=== PATIENT | female | born 1945 | race Caucasian/White ===

== ENCOUNTER 2017-09-10 07:53 | Day surgery (SDC) | payer MEDICARE ==
[2017-09-05 15:16] VITALS: BMI 28.1
--- NOTE | 2017-09-10 07:40 | P.GSHP ---
History of Present Illness H&P Date: 09/10/17 CHIEF COMPLAINT: Colon screen HISTORY OF PRESENT ILLNESS: The patient is a 72-year-old female who presents for colon screen. Lower endoscopy was offered for further evaluation and management. PAST MEDICAL HISTORY: Please see list. PAST SURGICAL HISTORY: Please see list. MEDICATIONS: Please see list. ALLERGIES: Please see list. SOCIAL HISTORY: No illicit drug use FAMILY HISTORY: No reports of Crohn disease or ulcerative colitis. REVIEW OF ORGAN SYSTEMS: CONSTITUTIONAL: No reports of fevers or chills. PHYSICAL EXAM: VITAL SIGNS: Stable GENERAL: Well-developed pleasant in no acute distress. HEENT: No scleral icterus. Extraocular movements grossly intact. Moist buccal mucosa. NECK: Supple without lymphadenopathy. CHEST: Unlabored respirations. Equal bilateral excursions. CARDIOVASCULAR: Regular rate and rhythm. Distal 2+ pulses. ABDOMEN: Soft, nontender, nondistended. MUSCULOSKELETAL: No clubbing, cyanosis, or edema. ASSESSMENT: 1. Colon screen. PLAN: 1. Recommend proceeding with a lower endoscopy Past Medical History Past Medical History: Hyperlipidemia, Hypertension, Osteoarthritis (OA) Additional Past Medical History / Comment(s): TMJ History of Any Multi-Drug Resistant Organisms: None Reported Past Surgical History: Section, Heart Catheterization Additional Past Surgical History / Comment(s): COLONOSCOPY. BILAT CATARACTS REMOVED. CYST REMOVED FROM RT BREAST-BENIGN. MASS REMOVED FROM RECTUM-BENIGN. EGD Past Anesthesia/Blood Transfusion Reactions: No Reported Reaction Smoking Status: Never smoker - Past Family History Father Family Medical History: Cancer Medications and Allergies Home Medications Medication Instructions Recorded Confirmed Type Acetaminophen [Tylenol Arthritis] 1,300 mg PO BID 09/05/17 09/05/17 History Ascorbic Acid [Vitamin C] 500 mg PO DAILY 09/05/17 09/05/17 History Calcium Carb-Vit D 500Mg-200Un 1 each PO DAILY 09/05/17 09/05/17 History [Oscal 500+D] Cholecalciferol (Vitamin D3) 2,000 unit PO DAILY 09/05/17 09/05/17 History [Vitamin D3] Docusate [Colace] 100 mg PO BID 09/05/17 09/05/17 History Metoprolol Tartrate [Lopressor] 50 mg PO BID 09/05/17 09/05/17 History Multivit-Min/Iron/Folic/Lutein 1 each PO HS 09/05/17 09/05/17 History [Centrum Silver Women Tablet] OXcarbazepine [Trileptal] 300 mg PO BID 09/05/17 09/05/17 History Simvastatin [Zocor] 40 mg PO HS 09/05/17 09/05/17 History levETIRAcetam 250 mg PO TID 09/05/17 09/05/17 History Allergies Allergy/AdvReac Type Severity Reaction Status Date / Time levofloxacin [From Levaquin] Allergy Rash/Hives Verified 09/05/17 15:34 metronidazole [From Flagyl] Allergy Rash/Hives Verified 09/05/17 15:34 acetaminophen AdvReac Nausea & Verified 09/05/17 15:34 [From Darvocet-N] Vomiting aspirin AdvReac Abdominal Verified 09/05/17 15:34 Pain propoxyphene AdvReac Nausea & Verified 09/05/17 15:34 [From Darvocet-N] Vomiting sulfamethoxazole AdvReac DIZZY Verified 09/05/17 15:34 [From Bactrim] tramadol AdvReac DIZZY Verified 09/05/17 15:34 trimethoprim [From Bactrim] AdvReac DIZZY Verified 09/05/17 15:34
[~2017-09-10 07:53] MED LIST: LACTATED RINGERS 1,000 ML IV SCH
[2017-09-10] MEDS ORDERED: LIDOCAINE 1% 20 ML VIAL (10MG/ML) FOR IV START INTRADERMA ONE (08:15)
[2017-09-10] MEDS ORDERED: LIDOCAINE 1% INJ 10MG/ML (20 ML MDV) ONE (08:19)
[2017-09-10] MEDS ORDERED: PROPOFOL 10 MG/ML 20 ML VIAL IV ONE (08:19)
[2017-09-10 08:20] VITALS: RESP 18; TEMP 98.4
--- NOTE | 2017-09-10 08:35 | P.PCN ---
Date of Procedure: 09/10/17 Description of Procedure: PREOPERATIVE DIAGNOSIS: Gastroesophageal reflux disease. History of fundoplasty. POSTOPERATIVE DIAGNOSIS: Gastroesophageal reflux disease. History of fundoplasty. Gastric polyps. OPERATION: Esophagogastroduodenoscopy with biopsies along antrum. SURGEON: Sophie Aguilar MD ANESTHESIA: MAC. INDICATIONS: The patient is a 72-year-old female who presents with a history of reflux disease. Benefits and risks of the procedure were described. Informed consent was obtained. DESCRIPTION: The patient was brought into the endoscopy suite and laid in the left lateral decubitus position. An Olympus gastroscope was passed along the posterior oropharynx down to the distal esophagus where the squamocolumnar junction was encountered at 36 cm from the incisors. The stomach was entered and no bile reflux was found. Additional findings are listed below. Biopsies with cold forceps were obtained of the antrum. The first through third portion of the duodenum was examined and unremarkable. Retroflexion of the scope confirmed Hill grade 2 lower esophageal valve. The squamocolumnar junction demostrated early and acute LA grade A erosive esophagitis. The stomach was desufflated. The patient tolerated the procedure well. FINDINGS: Squamocolumnar junction 36 cm from the incisors. Diaphragmatic hiatus at 36 cm. Hill grade 2 lower esophageal valve. LA grade A erosive esophagitis. No active duodenitis. Mild chronic gastritis. RECOMMENDATIONS: Continue medical therapy. Further recommendations pending results of pathology report. Upper endoscopy as needed.
--- NOTE | 2017-09-10 08:47 | P.PCN ---
Date of Procedure: 09/10/17 Description of Procedure: PREOPERATIVE DIAGNOSIS: Colonoscopy screening. Personal history of colon polyps. POSTOPERATIVE DIAGNOSIS: Colonoscopy screening. Personal history of colon polyps. Diverticulosis, scattered. Grade 4, external prolapsed hemorrhoids. OPERATION: Colonoscopy to the ileocecal valve and appendiceal orifice. SURGEON: Sophie Aguilar MD. ANESTHESIA: MAC. INDICATIONS: The patient is a 72-year-old female who presents for colonoscopy screening. Her last colonoscopy was over 5 years ago. Benefits and risks were described and informed consent was obtained. DESCRIPTION OF PROCEDURE: The patient had undergone Gatorade, MiraLAX and Dulcolax prep. She had been brought into the operating room and laid in the left lateral decubitus position. After adequate intravenous sedation, the rectum was examined with 2% lidocaine jelly. External hemorrhoids were encountered. The rectal tone was within normal limits. No lesions were palpated in the rectal vault. An Olympus colonoscope was advanced until the ileocecal valve and appendiceal orifice were clearly viewed. She had redundant sigmoid including multiple stricture points of the sigmoid colon from previous diverticulosis. The prep was excellent with clear visualization of the mucosal folds. The scope was removed with visualization of each mucosal fold. Scattered diverticulosis was encountered of the sigmoid colon. No colonic polyps were found. No evidence of focal colitis was found. Retroflexion of the scope demonstrated grade 2 internal hemorrhoids without active bleeding or inflammation. The colon was desufflated. The patient had tolerated the procedure well. Withdrawal time was over 6 minutes. FINDINGS: Internal hemorrhoids, grade 2 External prolapsed hemorrhoidsm, grade 4. No arteriovenous malformations. Sigmoid stricture from previous diverticulosis. Sigmoid diverticulosis. No adenomatous polyps. No focal colitis. RECOMMENDATIONS: Repeat lower endoscopy in 5 years, 2022. Plan - Discharge Summary Discharge Rx Participant: No New Discharge Prescriptions: No Action Docusate [Colace] 100 mg PO BID Ascorbic Acid [Vitamin C] 500 mg PO DAILY Simvastatin [Zocor] 40 mg PO HS Metoprolol Tartrate [Lopressor] 50 mg PO BID OXcarbazepine [Trileptal] 300 mg PO BID levETIRAcetam 250 mg PO TID Multivit-Min/Iron/Folic/Lutein [Centrum Silver Women Tablet] 1 each PO HS Cholecalciferol (Vitamin D3) [Vitamin D3] 2,000 unit PO DAILY Calcium Carb-Vit D 500Mg-200Un [Oscal 500+D] 1 each PO DAILY Acetaminophen [Tylenol Arthritis] 1,300 mg PO BID Discharge Medication List Acetaminophen [Tylenol Arthritis] 1,300 mg PO BID 09/05/17 [History] Ascorbic Acid [Vitamin C] 500 mg PO DAILY 09/05/17 [History] Calcium Carb-Vit D 500Mg-200Un [Oscal 500+D] 1 each PO DAILY 09/05/17 [History] Cholecalciferol (Vitamin D3) [Vitamin D3] 2,000 unit PO DAILY 09/05/17 [History] Docusate [Colace] 100 mg PO BID 09/05/17 [History] Metoprolol Tartrate [Lopressor] 50 mg PO BID 09/05/17 [History] Multivit-Min/Iron/Folic/Lutein [Centrum Silver Women Tablet] 1 each PO HS [History] OXcarbazepine [Trileptal] 300 mg PO BID 09/05/17 [History] Simvastatin [Zocor] 40 mg PO HS 09/05/17 [History] levETIRAcetam 250 mg PO TID 09/05/17 [History] Follow up Appointment(s)/Referral(s): Sophie Aguilar MD [STAFF PHYSICIAN] - 09/23/17 Patient Instructions/Handouts: *[facility] - (Anesthesia) Endoscopy Discharge Instructions Discharge Disposition: HOME SELF-CARE
[2017-09-10 08:53] VITALS: BP 132/64; PULSE 56
== END 2017-09-10 09:47 | disposition home or self-care (01) ==
LOC: ORWHC2ENDO 07:53
PROVIDERS: ATTEND Surgery Plastic and Reconstructive Surgery
DX: Z12.11 Encounter for screening for malignant neoplasm of colon (principal); K64.1 Second degree hemorrhoids; K64.8 Other hemorrhoids; K57.30 Diverticulosis of large intestine without perforation or abscess without bleeding; Q43.8 Other specified congenital malformations of intestine; K29.50 Unspecified chronic gastritis without bleeding; K31.7 Polyp of stomach and duodenum; K21.0 Gastro-esophageal reflux disease with esophagitis; Z86.010 Personal history of colon polyps; E78.5 Hyperlipidemia, unspecified; I10 Essential (primary) hypertension; G50.0 Trigeminal neuralgia; M19.90 Unspecified osteoarthritis, unspecified site; Z79.899 Other long term (current) drug therapy; Z88.1 Allergy status to other antibiotic agents; Z88.6 Allergy status to analgesic agent; Z88.5 Allergy status to narcotic agent; Z88.2 Allergy status to sulfonamides
CPT/HCPCS: 88305; 43239; J2001; J2704; G0105

== ENCOUNTER → 2018-02-14 | Outpatient (CLI) | payer MEDICARE ==
[2018-02-14 11:39] LABS: HCT 41.9 % (34.0-46.0); HGB 13.7 gm/dL (11.4-16.0); MCH 32.1 pg (25.0-35.0); MCHC 32.7 g/dL (31.0-37.0); MCV 98.2 fL (80.0-100.0); Mean Platelet Volume 6.3; Platelet Count 276 k/uL (150-450); RBC 4.26 m/uL (3.80-5.40); RDW 12.8 % (11.5-15.5); WBC 6.9 k/uL (3.8-10.6)
[2018-02-14 11:50] LABS: Potassium 4.4 mmol/L (3.5-5.1)
== END | disposition home or self-care (01) ==
LOC: LABPAT 10:53
PROVIDERS: ATTEND Surgery Plastic and Reconstructive Surgery
DX: K57.92 Diverticulitis of intestine, part unspecified, without perforation or abscess without bleeding (principal)
CPT/HCPCS: 36415; 80051; 85027; 93005

== ENCOUNTER 2018-04-02 10:12 | Inpatient (IN) | payer MEDICARE ==
[2018-03-30 11:01] VITALS: BMI 27.3
--- NOTE | 2018-04-01 21:43 | P.GSHP ---
History of Present Illness H&P Date: 04/02/18 CHIEF COMPLAINT: History of sigmoid diverticulitis HISTORY OF PRESENT ILLNESS: The patient is a 72-year-old female with long- standing history of chronic constipation including recurrent diverticulitis. She completed a colonoscopy which excluded underlying neoplasm. Now she presents for sigmoid colon resection. PAST MEDICAL HISTORY: Please see list. PAST SURGICAL HISTORY: Please see list. MEDICATIONS: Please see list. ALLERGIES: Please see list. SOCIAL HISTORY: No illicit drug use FAMILY HISTORY: No reports of Crohn disease or ulcerative colitis. REVIEW OF ORGAN SYSTEMS: CONSTITUTIONAL: Denies any fever or chills. HEENT: Denies any trouble with vision or nosebleeds. LYMPHATIC: The patient denies any lumps and bumps around the neck. RESPIRATORY: Denies pneumonia. Denies any troubles with breathing or dyspnea on exertion. CARDIOVASCULAR: Denies any chest pain, palpitations, or recent heart attacks. She completed cardiac risk assessment GASTROINTESTINAL: Has constipation and recent colonoscopy. GENITOURINARY: Has increased urinary frequency. MUSCULOSKELETAL: Has back pain, stiffness, joint arthritis. NEUROLOGIC: Denies any numbness or tingling along the distal extremities. No seizure disorders or headaches. PSYCHIATRIC: Denies depression or suidical ideation. HEMATOLOGIC: Denies any abnormal bleeding or bruising. PHYSICAL EXAM: VITAL SIGNS: Stable GENERAL: Well-developed pleasant in no acute distress. HEENT: No scleral icterus. Extraocular movements grossly intact. Moist buccal mucosa. He is hard of hearing. NECK: Supple without lymphadenopathy. CHEST: Unlabored respirations. Equal bilateral excursions. CARDIOVASCULAR: Regular rate and rhythm. Distal 2+ pulses. ABDOMEN: Soft, nontender, nondistended. MUSCULOSKELETAL: No clubbing, cyanosis, or edema. NERUO: Regular 2-12 grossly intact. PSYCH: Alert and oriented to person place and time. ASSESSMENT: 1. History of recurrent diverticulitis PLAN: 1. Benefits and risks of surgical intervention of sigmoid resection including robotic-assisted approach was also described. 2. She has completed an enhanced colon recovery program. 3. DVT prophylaxis. 4. Antibiotic prophylaxis. Past Medical History Past Medical History: GERD/Reflux, Hearing Disorder / Deafness, Hyperlipidemia, Hypertension, Osteoarthritis (OA) Additional Past Medical History / Comment(s): hx migraines, diveticulosis, trigeminal nerve pain, leakage of urine, [place] History of Any Multi-Drug Resistant Organisms: None Reported Past Surgical History: Breast Surgery, Section, Heart Catheterization Additional Past Surgical History / Comment(s): SILVIA CATARACTS REMOVED, CYST REMOVED FROM RT BREAST, FATTY MASS REMOVED FROM RECTUM, colonoscopy, EGD, Past Anesthesia/Blood Transfusion Reactions: No Reported Reaction Smoking Status: Never smoker - Past Family History Father Family Medical History: Cancer Additional Family Medical History / Comment(s): COLON CANCER, LEUKEMIA Medications and Allergies Home Medications Medication Instructions Recorded Confirmed Type Acetaminophen [Tylenol Arthritis] 1,300 mg PO BID PRN 09/05/17 03/30/18 History Ascorbic Acid [Vitamin C] 500 mg PO DAILY 09/05/17 03/30/18 History Calcium Carb-Vit D 500Mg-200Un 1 each PO DAILY 09/05/17 03/30/18 History [Oscal 500+D] Cholecalciferol (Vitamin D3) 2,000 unit PO DAILY 09/05/17 03/30/18 History [Vitamin D3] Docusate [Colace] 100 mg PO BID 09/05/17 03/30/18 History Metoprolol Tartrate [Lopressor] 50 mg PO BID 09/05/17 03/30/18 History Multivit-Min/Iron/Folic/Lutein 1 each PO DAILY 09/05/17 03/30/18 History [Centrum Silver Women Tablet] Simvastatin [Zocor] 40 mg PO HS 09/05/17 03/30/18 History levETIRAcetam 500 mg PO TID 09/05/17 03/30/18 History amLODIPine [Norvasc] 5 mg PO 1630 02/13/18 03/30/18 History Systane Balance 1 drop BOTH EYES DAILY 03/30/18 03/30/18 History Allergies Allergy/AdvReac Type Severity Reaction Status Date / Time levofloxacin [From Levaquin] Allergy Rash/Hives Verified 03/30/18 10:45 metronidazole [From Flagyl] Allergy Rash/Hives Verified 03/30/18 10:45 neomycin Allergy Vomiting Verified 03/30/18 10:45 aspirin AdvReac Abdominal Verified 03/30/18 10:45 Pain propoxyphene AdvReac Nausea & Verified 03/30/18 10:45 [From Darvocet-N] Vomiting sulfamethoxazole AdvReac DIZZY Verified 03/30/18 10:45 [From Bactrim] tramadol AdvReac DIZZY Verified 03/30/18 10:45 trimethoprim [From Bactrim] AdvReac DIZZY Verified 03/30/18 10:45
[~2018-04-02 10:12] MED LIST changes: +ACETAMINOPHEN TAB 500 MG TAB PO ONE; +ALVIMOPAN 12 MG CAPSULE PO ONE; +Antibiotics per Pharmacy 1 EACH MISC MISCELLANE PRN; +CLINDAMYCIN 900 MG in DEXTROSE 5% IN WATER 50 ML IVPB ONE; +DEXAMETHASONE SOD PHOSPHATE 10 MG/ML 1 ML VIAL IV ONE; +HEPARIN SODIUM,PORCINE 5,000 UNIT/ML 1 ML VIAL SQ ONE; +HYDROmorphone 0.5 MG/0.5 ML SYRINGE IVP PRN; -LACTATED RINGERS 1,000 ML IV SCH; +ONDANSETRON 4 MG/2 ML VIAL IVP ONE; +ceFAZolin IN SWFI 2 GM/20 ML SYRINGE IVP ONE
[2018-04-02] MEDS ORDERED: LIDOCAINE 1% 20 ML VIAL (10MG/ML) FOR IV START INTRADERMA ONE (12:15)
[2018-04-02] MEDS: LACTATED RINGERS 1,000 ML IV SCH ×2 (12:15→12:16)
[2018-04-02] MEDS ORDERED: ACETAMINOPHEN IV (For NPO) 1,000 MG/100 ML VIAL IVPB ONE (12:29)
[2018-04-02] MEDS ORDERED: MIDAZOLAM 2 MG/2 ML VIAL IV ONE (12:43)
[2018-04-02] MEDS ORDERED: NALOXONE 0.4 MG/ML 1 ML VIAL IV PRN (13:07)
[2018-04-02 13:22] LABS: Basophils % (A) 0 %; Eosinophils # (A) 0.1 k/uL (0-0.7); Eosinophils % (A) 1 %; HCT 41.5 % (34.0-46.0); HGB 13.4 gm/dL (11.4-16.0); Lymphocytes # (A) 1.8 k/uL (1.0-4.8); Lymphocytes % (A) 26 %; MCH 31.3 pg (25.0-35.0); MCHC 32.4 g/dL (31.0-37.0); MCV 96.5 fL (80.0-100.0); Mean Platelet Volume 7.2; Monocytes # (A) 0.4 k/uL (0-1.0); Monocytes % (A) 6 %; Neutrophils # (A) 4.5 k/uL (1.3-7.7); Neutrophils % (A) 66 %; Platelet Count 292 k/uL (150-450); RDW 12.4 % (11.5-15.5); WBC 6.8 k/uL (3.8-10.6)
[2018-04-02 13:24] LABS: ALT 28 U/L (9-52); AST 26 U/L (14-36); Albumin 4.6 g/dL (3.5-5.0); Alkaline Phosphatase 76 U/L (38-126); Anion Gap 9 mmol/L; Blood Urea Nitrogen 9 mg/dL (7-17); Calcium 10.4 mg/dL (8.4-10.2); Carbon Dioxide 30 mmol/L (22-30); Chloride 104 mmol/L (98-107); Glucose 96 mg/dL (74-99); Potassium 3.9 mmol/L (3.5-5.1); Sodium 143 mmol/L (137-145); Total Bilirubin 0.5 mg/dL (0.2-1.3); Total Protein 7.9 g/dL (6.3-8.2)
[2018-04-02] MEDS ORDERED: NEOSTIGMINE 1 MG/ML 10 ML VIAL ONE (13:26)
[2018-04-02] MEDS ORDERED: LIDOCAINE 1% INJ 10MG/ML (20 ML MDV) ONE (13:26)
[2018-04-02] MEDS ORDERED: fentaNYL (PF) 50 MCG/ML 2 ML AMP ONE (13:26)
[2018-04-02] MEDS ORDERED: PROPOFOL 10 MG/ML 20 ML VIAL IV ONE (13:26)
[2018-04-02] MEDS ORDERED: ROCURONIUM BROMIDE 10 MG/ML 10 ML VIAL IV ONE (13:26)
[2018-04-02] MEDS ORDERED: PHENYLEPHRINE-0.9% NACL SYG 1 MG/10 ML SYRINGE ONE (13:26)
[2018-04-02] MEDS ORDERED: GLYCOPYRROLATE 0.2 MG/ML 2 ML VIAL ONE (13:26)
[2018-04-02] MEDS ORDERED: MIDAZOLAM 2 MG/2 ML VIAL ONE (13:26)
[2018-04-02] MEDS ORDERED: SUCCINYLCHOLINE CHLORIDE 100 MG/5 ML SYR IV ONE (13:26)
[2018-04-02] MEDS ORDERED: LIDOCAINE 1%-EPI 1:100,000 30 ML VIAL SQ ONE (14:03)
[2018-04-02] MEDS ORDERED: LACTATED RINGERS 1,000 ML IV ONE (16:01)
[2018-04-02] MEDS ORDERED: BENZOCAINE/MENTHOL LOZENG 1 EACH LOZENGE MUCOUS MEM PRN (17:08)
[2018-04-02] MEDS ORDERED: HYDROmorphone 1 MG/ML 1 ML SYRINGE IVP PRN (17:08)
[2018-04-02] MEDS ORDERED: ONDANSETRON 4 MG/2 ML VIAL IVP PRN (17:08)
--- NOTE | 2018-04-02 17:08 | P.OP ---
Date of Procedure: 04/02/18 Description of Procedure: SURGEON: MESHA WELLINGTON MD PREOPERATIVE DIAGNOSES: 1. Sigmoid diverticulitis 2. Left lower quadrant abdominal pain 3. Gastroesophageal reflux disease 4. Hypertensive heart disease 5. Seizure disorder 6. Trigeminal neuralgia 6. History of multiple drug ALLERGIES 7. History of coronary artery disease POSTOPERATIVE DIAGNOSES: 1. Sigmoid diverticulitis 2. Left lower quadrant abdominal pain 3. Gastroesophageal reflux disease 4. Hypertensive heart disease 5. Seizure disorder 6. Trigeminal neuralgia 6. History of multiple drug ALLERGIES 7. History of coronary artery disease OPERATION: 1. Robotic-assisted daVinci Xi laparoscopic sigmoid colectomy, multi-port ANESTHESIA: General with local and epidural ESTIMATED BLOOD LOSS: 5 mL SPECIMENS REMOVED: sigmoid colon FINDINGS: 1. Localized diverticulitis of the left lower quadrant area resected. 2. Linear isoperistaltic colo-colo anastomosis performed using 45 green and blue loads INDICATIONS: The patient is a 72-year-old female who presents with history of sigmoid diverticulitis. She has chronic left lower quadrant abdominal pain as a result. She completed a colonoscopy. Surgical options were described including robotic assisted technique. Benefits and risks, including infection, possibility for additional surgery, including possible colostomy was discussed at length. Informed consent was obtained. DESCRIPTION: Earlier the patient had undergone a bowel prep using the enhanced colon recovery program and placement of epidural . The patient was transferred to the operating room and placed supine. The patient was then intubated. A Winters catheter placed. The abdomen was then prepped and draped in standard sterile fashion. After a timeout protocol was performed, attention was then brought to the left upper quadrant whereby a 0 degree 5 mm laparoscopic trocar entry was performed. The abdominal cavity was entered and insufflated to 15 mmHg pressure, which she tolerated well. Diagnostic laparoscopy demonstrated inflammatory reaction of the left lower quadrant after sigmoid colon with scarring. The sigmoid colon was moderately redundant. All 3 arms of the robot were used. Next a robotic 8-mm trocar was placed along the left lateral abdominal wall 15 cm proximal from the pelvis. A 12 mm port was placed along the right lateral abdominal wall followed by another robotic 8- mm port placed along the right upper quadrant. Ports were placed 8 cm apart from each other including 15cm away from the target anatomy of the left pelvis. The 5-mm port was exchanged for an 12 mm robotic port. The stapler 12-mm port was placed along the right lateral and left upper quadrant. The patient was then placed in Trendelenburg position, 15. The robotic da Joslyn Xi system was primed. The robot was docked along the left-side of the patient. Using a grasper for arm 1, a grasper for arm 3, including vessel sealer for arm 4, the robotic system was docked and primed as described. Instruments were interchanged by the assistant golf course superintendent including scissors the cartridge, needle pile driver operator, robotic stapler and vessel sealer. Next, attention was brought to identify the rectum. A stay suture using 0 silk was placed along the anterior serosa of the descending colon including along the rectum. The area of sigmoid diverticulitis was identified. The sigmoid mesentery was mobilized using a vessel sealer whereby the distal sigmoid colon was marked and tagged. Using robot stapler 45 mm blue load, the distal redundant sigmoid colon was divided. The mesentery of the sigmoid colon was mobilized towards the descending colon using a vessel sealer. Next, the proximal sigmoid colon was divided using robotic stapler 45 mm blue load. The descending colon was similarly marked using 3-0 silk. The rest of the sigmoid colon mesentery was mobilized using vessel sealer. The proximal and distal colon was brought in an isoperistaltic fashion after placing interrupted sutures along the proposed otto-lumen using 3-0 silk. Along the tinea coli of the proximal including distal limbs, a colotomy was prepared along both limbs. Next, a 45 mm blue stapler was fired to create the otto- lumen. The colotomy of the otto-lumen was closed using 3-0 Vicryl and 3-0 silk and 45 mm green loads. The robot was undocked. I re-scrubbed into the case. Via the 12 mm port of the left upper lateral trocar, the colon was removed after widening the incision. All sponges were removed from the abdominal cavity. Minimal contamination had occurred throughout the case. The 12-mm trocar site of left upper quadrant was less than 8 mm in size. Next all pneumoperitoneum was evacuated from the abdominal cavity. The 8-mm trocar sites were reapproximated using 4-0 Monocryl in an interrupted subcuticular fashion. The larger trocar sites were irrigated using warm normal saline and hydrogen peroxide solution of the colon extraction site. Local anesthetic was infiltrated to all wounds for postop analgesia. An OptiDearLocalam surgical dressing was placed over the colon extraction site. Liquid glue was applied to the rest of the skin incisions. The patient had tolerated the procedure well. Estimated blood loss was approximately 5 mL. The patient was extubated successfully. Intraoperative photos were reviewed with the patient's family who were overall pleased with the level of care. The patient was transferred to the postanesthesia care unit in stable condition. Console time 126 minutes
[2018-04-02] MEDS: ROPIVACAINE 250 MG, HYDROMORPHONE (PF) 5 MG in SODIUM CHLORIDE 0.9% 200 ML EPIDURAL PRN ×2 (17:12→17:54)
[2018-04-02] MEDS: D5-0.45% NACL WITH KCL 20MEQ/L 1,000 ML IV SCH (18:21)
[2018-04-02] MEDS: levETIRAcetam 500 MG TAB PO SCH (21:38)
[2018-04-02] MEDS: METOPROLOL TARTRATE 50 MG TAB PO SCH (21:38)
[2018-04-02] MEDS: HEPARIN SODIUM,PORCINE 5,000 UNIT/ML 1 ML VIAL SQ SCH (21:38)
[2018-04-02 22:48] LABS: Hemoglobin A1C 5.3 % (4.0-6.0)
[2018-04-02] MEDS: ceFAZolin IN SWFI 2 GM/20 ML SYRINGE IVP SCH (23:03)
[2018-04-02] MEDS: ACETAMINOPHEN TAB 500 MG TAB PO PRN (23:06)
[2018-04-03] MEDS: D5-0.45% NACL WITH KCL 20MEQ/L 1,000 ML IV SCH ×3 (01:48→19:01)
[2018-04-03] MEDS: ceFAZolin IN SWFI 2 GM/20 ML SYRINGE IVP SCH (07:33)
[2018-04-03 08:19] LABS: Basophils % (A) 0 %; Eosinophils % (A) 0 %; HCT 36.9 % (34.0-46.0); HGB 11.8 gm/dL (11.4-16.0); Lymphocytes # (A) 1.3 k/uL (1.0-4.8); Lymphocytes % (A) 14 %; MCH 31.3 pg (25.0-35.0); MCV 97.9 fL (80.0-100.0); Mean Platelet Volume 6.6; Monocytes # (A) 0.6 k/uL (0-1.0); Monocytes % (A) 7 %; Neutrophils # (A) 7.7 k/uL (1.3-7.7); Neutrophils % (A) 79 %; Platelet Count 271 k/uL (150-450); RBC 3.77 m/uL (3.80-5.40); RDW 12.5 % (11.5-15.5); WBC 9.8 k/uL (3.8-10.6)
[2018-04-03] MEDS: HEPARIN SODIUM,PORCINE 5,000 UNIT/ML 1 ML VIAL SQ SCH ×2 (08:23→20:38)
[2018-04-03] MEDS: levETIRAcetam 500 MG TAB PO SCH ×3 (08:24→20:39)
[2018-04-03] MEDS: METOPROLOL TARTRATE 50 MG TAB PO SCH ×2 (08:24→20:39)
[2018-04-03 08:27] LABS: Anion Gap 2 mmol/L; Blood Urea Nitrogen 8 mg/dL (7-17); Calcium 8.9 mg/dL (8.4-10.2); Carbon Dioxide 30 mmol/L (22-30); Chloride 106 mmol/L (98-107); Glucose 124 mg/dL (74-99); Potassium 4.3 mmol/L (3.5-5.1); Sodium 138 mmol/L (137-145)
[2018-04-03] MEDS: ACETAMINOPHEN TAB 500 MG TAB PO PRN (11:16)
[2018-04-03] MEDS ORDERED: SODIUM CHLORIDE 0.9% 1,000 ML IV ONE (13:32)
--- NOTE | 2018-04-03 13:33 | P.PN ---
Subjective Progress Note Date: 04/03/18 72-year-old female resting in bed. Epidural has been DC'd per anesthesia. Tolerating a clear liquid diet. Surgical dressings site dry. A few hypoactive bowel tones. States has not voided since the Winters came out. Is not passing gas has been up to bathroom and back .Robotic-assisted daVinci Xi laparoscopic sigmoid colectomy, multi-port done on April 02 Objective - Vital Signs Vital signs: Vital Signs Temp 98.2 F 04/03/18 07:30 Pulse 62 04/03/18 07:30 Resp 14 04/03/18 07:30 BP 91/59 04/03/18 07:30 Pulse Ox 97 04/03/18 07:30 Intake & Output 04/02/18 04/03/18 04/03/18 18:59 06:59 18:59 Intake Total 2185 1250 Output Total 205 450 750 Balance 1980 800 -750 Weight 69.853 kg Intake: IV 2185 Intake, IV Titration 1250 Amount D5-0.45% NaCl with KCl 1250 20Meq/l 1,000 ml @ 125 mls/hr IV .Q8H [facility] Rx#: [id number] Output: Urine 200 450 750 Uretheral (Winters) 450 750 Estimated Blood Loss 5 Other: Voiding Method Indwelling Catheter Indwelling Catheter Indwelling Catheter - Exam GENERAL APPEARANCE: 72-year-old female patient is alert, resting in bed in no acute distress. Did note systolic blood pressure 91/59 VITAL SIGNS: Reviewed HEENT: Head is normocephalic and atraumatic. Pupils are equal and reactive. The nares are patent. Oropharynx is clear without lesions. NECK: Supple without lymphadenopathy. Traches midline. HEART: S1, S2. Regular rate and rhythm. No murmur noted LUNGS: No crackles or wheezes are heard. On room air sats are 97% ABDOMEN: Soft, surgical dressing dry surgical tenderness appropriate not distended a few hypoactive bowel tones. No peritoneal signs. No palpable organomegaly or masses. EXTREMITIES: Normal skin color and turgor. No cyanosis, rash, ulceration, clubbing or edema. Radial pedal pulses are 2/4 bilaterally. NEUROLOGICAL: No focal deficits. Strength and sensation are grossly intact. - Labs CBC & Chem 7: 04/03/18 07:15 04/03/18 07:15 Labs: Abnormal Lab Results - Last 24 Hours (Table) 04/02/18 04/03/18 04/03/18 Range/Units 12:16 07:15 07:15 RBC 3.77 L (3.80-5.40) m/uL Glucose 124 H (74-99) mg/dL Calcium 10.4 H (8.4-10.2) mg/dL Assessment and Plan Assessment: Impression Left lower quadrant abdominal pain present on admission suspect due to sigmoid diverticulitis Gastroesophageal reflux disease Multiple drug ALLERGIES Robotic-assisted daVinci Xi laparoscopic sigmoid colectomy, multi-port agust 24 plan continue surgical care pain control clear liquid diet Monitor blood pressure address as indicated DVT and GI prophylaxis Increase activity as tolerated The above impression and plan of care have been discussed and directed by signing physician. Jamilah Schaffer nurse practitioner acting as scribe for signing physician.
[2018-04-03] MEDS: PANTOPRAZOLE 40 MG/10 ML VIAL IVP SCH (15:25)
[2018-04-03] MEDS ORDERED: amLODIPine 5 MG TAB PO SCH (16:30)
[2018-04-03] MEDS: HYDROcodone/APAP 5-325MG 1 EACH TAB PO PRN ×2 (19:00→23:04)
--- NOTE | 2018-04-03 19:40 | P.PN ---
Progress Note - Text Progress Note Date: 04/03/18 Patient has voided this evening. She is quite comfortable. She reports increased pain now that epidural is removed. PLAN: 1. Pain management with discharge home tomorrow.
[2018-04-03] MEDS ORDERED: diphenhydrAMINE 25 MG CAP PO PRN ×2 (20:17→20:18)
--- NOTE | 2018-04-03 22:38 | CONS ---
CONSULTATION REASON FOR CONSULTATION: Advice regarding hypertension and other multiple medical issues requested by Dr. Aguilar. HISTORY OF PRESENT ILLNESS: This 72-year-old woman with a past medical history of hypertension, hyperlipidemia, history of DJD, history of migraine, underwent laparoscopic sigmoid colectomy for sigmoid diverticulitis. The patient had hypotension, possibly secondary to epidural anesthesia. The blood pressure was 89/56, responded to IV boluses. There is no history of any chest pain, no history of palpitations, no history of headache, loss of consciousness, seizures. No history of nausea, vomiting, diarrhea, fever, rigor or chills at this time. PAST MEDICAL HISTORY: 1. History of hearing defect. 2. Hypertension. 3. Hyperlipidemia. 4. History of DJD. 5. History of breast surgery. HOME MEDICATIONS: 1. Keppra 500 mg p.o. t.i.d. 2. Norvasc 5 mg p.o. daily. 3. Zocor 40 mg at bedtime. 4. Systane 1 drop both eyes b.i.d. 5. Centrum multivitamins 1 p.o. daily. 6. Lopressor 50 mg p.o. b.i.d. 7. Colace 100 mg p.o. b.i.d. 8. Vitamin D3 2000 daily. 9. Os-Twin with vitamin D p.o. daily. 10.Vitamin C 500 mg p.o. daily. 11.Tylenol Arthritis b.i.d. p.r.n. ALLERGIES: 1. LEVAQUIN. 2. FLAGYL. 3. ASPIRIN. 4. NEOMYCIN. 5. DARVOCET. 6. BACTRIM. 7. ULTRAM. FAMILY HISTORY: History of colon cancer, leukemia in the family. SOCIAL HISTORY: No history of smoking. No history of alcohol intake. REVIEW OF SYSTEMS: ENT: No diminished hearing. No diminished vision. CARDIOVASCULAR SYSTEM: No angina, palpitations. RESPIRATORY SYSTEM: No cough, hemoptysis. GI: As mentioned earlier. : No dysuria or retention. NERVOUS SYSTEM: No numbness, weakness. ALLERGY/IMMUNOLOGY: No asthma, hayfever. MUSCULOSKELETAL: As mentioned earlier. HEMATOLOGY/ONCOLOGY: No history of anemia. ENDOCRINE: No history of diabetes, hypothyroidism. CONSTITUTIONAL: As mentioned earlier. DERMATOLOGY: Negative. RHEUMATOLOGY: Negative. PSYCHIATRY: As mentioned earlier. PHYSICAL EXAMINATION: Patient is alert and oriented x3. Pulse is 72, blood pressure 119/65, respiration 18, temperature 98.4, pulse ox 96% on room air. HEENT: Conjunctivae normal. Oral mucosa moist. NECK: No jugular venous distention. No carotid bruit. No lymph node enlargement. CARDIOVASCULAR SYSTEM: S1, S2 muffled. RESPIRATORY SYSTEM: Breath sounds diminished at the bases. No rhonchi. No crackles. ABDOMEN: Soft. Status post surgery. LEGS: No edema. No swelling. NERVOUS SYSTEM: Higher functions as mentioned earlier. Moves all 4 limbs. No focal motor or sensory deficit. LYMPHATICS: No lymph node palpable in neck, axillae or groin. SKIN: No ulcer, rash, bleeding. LABS: CBC within normal limits. Sodium 130, potassium 4.3. Creatinine is normal. ASSESSMENT: 1. Status post laparoscopic sigmoid colectomy for sigmoid diverticulitis. 2. Hypotension, possibly secondary to epidural. 3. History of hypertension. 4. Hyperlipidemia. 5. Degenerative joint disease. 6. History of migraines. 7. History of cataracts. RECOMMENDATIONS AND DISCUSSION: In this 72-year-old woman who presented with multiple medical issues, at this time I recommend to continue current medications, continue with symptomatic treatment. Otherwise at this time I would recommend to hold the blood pressure medications and to monitor blood pressure closely. Continue the IV fluids. The labs are within normal limits at this time. I would also recommend holding the metoprolol if the blood pressure is low. Otherwise, we will continue to monitor. Further recommendations to follow. MMODL / IJN: [id number] /
[2018-04-04] MEDS: D5-0.45% NACL WITH KCL 20MEQ/L 1,000 ML IV SCH ×2 (02:02→11:37)
[2018-04-04 02:49] VITALS: RESP 16
[2018-04-04] MEDS: HYDROcodone/APAP 5-325MG 1 EACH TAB PO PRN ×3 (04:23→12:25)
[2018-04-04 07:31] VITALS: BP 128/75; PULSE 73; TEMP 98.5
[2018-04-04] MEDS: PANTOPRAZOLE 40 MG/10 ML VIAL IVP SCH (08:24)
[2018-04-04] MEDS: HEPARIN SODIUM,PORCINE 5,000 UNIT/ML 1 ML VIAL SQ SCH (08:24)
[2018-04-04] MEDS: METOPROLOL TARTRATE 50 MG TAB PO SCH (08:24)
[2018-04-04 08:26] LABS: Basophils % (A) 0 %; Eosinophils # (A) 0.1 k/uL (0-0.7); Eosinophils % (A) 1 %; HCT 40.6 % (34.0-46.0); HGB 12.6 gm/dL (11.4-16.0); Lymphocytes # (A) 2.6 k/uL (1.0-4.8); Lymphocytes % (A) 26 %; MCH 30.6 pg (25.0-35.0); MCHC 31.2 g/dL (31.0-37.0); MCV 98.1 fL (80.0-100.0); Mean Platelet Volume 7.2; Monocytes # (A) 0.6 k/uL (0-1.0); Monocytes % (A) 6 %; Neutrophils # (A) 6.6 k/uL (1.3-7.7); Neutrophils % (A) 65 %; Platelet Count 242 k/uL (150-450); RBC 4.14 m/uL (3.80-5.40); RDW 12.6 % (11.5-15.5); WBC 10.1 k/uL (3.8-10.6)
[2018-04-04] MEDS: levETIRAcetam 500 MG TAB PO SCH (09:34)
[2018-04-04 09:41] LABS: Anion Gap 5 mmol/L; Calcium 9.4 mg/dL (8.4-10.2); Carbon Dioxide 25 mmol/L (22-30); Chloride 112 mmol/L (98-107); Glucose 97 mg/dL (74-99); Sodium 142 mmol/L (137-145)
[2018-04-04 09:45] LABS: Blood Urea Nitrogen 5 mg/dL (7-17); Potassium 4.9 mmol/L (3.5-5.1)
--- NOTE | 2018-04-04 12:47 | P.DS ---
Providers Date of admission: 04/02/18 10:12 Expected date of discharge: 04/04/18 Attending physician: Sophie Aguilar Consults: 04/03/18 15:23 Consult Physician Routine Consulting Provider: Elliott Vance Consult Reason/Comments: medical management Do you want consulting provider notified?: Yes Primary care physician: Catracho Robertson Holley - Discharge Diagnosis(es) (1) Trigeminal neuralgia Current Visit: Yes Status: Acute (2) Gastroesophageal reflux Current Visit: Yes Status: Acute (3) Hypertensive heart disease Current Visit: Yes Status: Acute (4) Hard of hearing Current Visit: Yes Status: Acute (5) Diverticulitis Current Visit: Yes Status: Acute (6) S/P colectomy Current Visit: Yes Status: Acute Hospital Course: POSTOPERATIVE DIAGNOSES: 1. Sigmoid diverticulitis 2. Left lower quadrant abdominal pain 3. Gastroesophageal reflux disease 4. Hypertensive heart disease 5. Seizure disorder 6. Trigeminal neuralgia 6. History of multiple drug ALLERGIES 7. History of coronary artery disease The patient is a 72-year-old female who presents with history of sigmoid diverticulitis. She has chronic left lower quadrant abdominal pain as a result. She completed a colonoscopy. Surgical options were described including robotic assisted technique. Benefits and risks, including infection, possibility for additional surgery, including possible colostomy was discussed at length. Informed consent was obtained. Postprocedure she had done well. She was able tolerate diet. Her pain was well -controlled. She was urinating spontaneously. Her left lower quadrant abdominal pain had resolved. Vital Signs Temp 98.5 F 04/04/18 07:00 Pulse 73 04/04/18 07:00 Resp 16 04/04/18 07:00 BP 128/75 04/04/18 07:00 Pulse Ox 96 04/04/18 07:00 Intake & Output 04/03/18 04/04/18 04/04/18 18:59 06:59 18:59 Intake Total 875 2300 Output Total 1100 Balance -225 2300 Intake: Intake, IV Titration 875 2000 Amount D5-0.45% NaCl with KCl 875 2000 20Meq/l 1,000 ml @ 125 mls/hr IV .Q8H PETRONA Rx#: [id number] Other 300 Output: Urine 1100 Uretheral ([place]inters) 750 Other: Voiding Method Toilet # Voids 6 1 GENERAL: Well developed and in no acute distress. Pleasant. HEENT: No sclera icterus. Extraocular movements grossly intact. Moist buccal mucosa. Head is atraumatic, normocephalic. Hears conversational speech. No nasal drainage. NECK: Supple without lymphadenopathy. No JV distention. CHEST: Non-labored respirations and equal bilateral excursions. CARDIOVASCULAR: Regular rate and rhythm. Palpable 2+ radial pulses. ABDOMEN: Soft, nontender. Nondistended. Incisions clean dry and intact. MUSCULOSKELETAL: No clubbing, cyanosis or edema. NEUROLOGIC: No focal or lateralizing signs. PSYCH: Appropriate affect. Alert and oriented to person, place and time. SKIN: Good skin turgor. Well perfused. PLAN: 1. Colectomy reviewed including a full liquid diet and protein shakes advised. 2. She had tolerated for pain control. 3. Follow-up in the office at [facility] in 5 days Procedures: OPERATION: 1. Robotic-assisted daVinci Xi laparoscopic sigmoid colectomy, multi-port ANESTHESIA: General with local and epidural ESTIMATED BLOOD LOSS: 5 mL SPECIMENS REMOVED: sigmoid colon FINDINGS: 1. Localized diverticulitis of the left lower quadrant area resected. 2. Linear isoperistaltic colo-colo anastomosis performed using 45 green and blue loads Patient Condition at Discharge: Stable Plan - Discharge Summary Discharge Rx Participant: Yes New Discharge Prescriptions: New HYDROcodone/APAP 5-325MG [[place] 5-325] 1 tab PO Q4HR PRN 3 Days #18 tab PRN Reason: Pain Continue Ascorbic Acid [Vitamin C] 500 mg PO DAILY Simvastatin [Zocor] 40 mg PO HS Metoprolol Tartrate [Lopressor] 50 mg PO BID levETIRAcetam 500 mg PO TID Multivit-Min/Iron/Folic/Lutein [Centrum Silver Women Tablet] 1 tab PO DAILY Cholecalciferol (Vitamin D3) [Vitamin D3] 2,000 unit PO DAILY Calcium Carb-Vit D 500Mg-200Un [Oscal 500+D] 1 tab PO DAILY Acetaminophen [Tylenol Arthritis] 1,300 mg PO BID PRN PRN Reason: Pain amLODIPine [Norvasc] 5 mg PO DAILY@1630 Propylene Glycol/Peg 400/Pf [Systane 0.3-0.4% Eye Drops] 1 drop BOTH EYES DAILY Discontinued Docusate [Colace] 100 mg PO BID Discharge Medication List Acetaminophen [Tylenol Arthritis] 1,300 mg PO BID PRN 09/05/17 [History] Ascorbic Acid [Vitamin C] 500 mg PO DAILY 09/05/17 [History] Calcium Carb-Vit D 500Mg-200Un [Oscal 500+D] 1 tab PO DAILY 09/05/17 [History] Cholecalciferol (Vitamin D3) [Vitamin D3] 2,000 unit PO DAILY 09/05/17 [History] Metoprolol Tartrate [Lopressor] 50 mg PO BID 09/05/17 [History] Multivit-Min/Iron/Folic/Lutein [Centrum Silver Women Tablet] 1 tab PO DAILY [History] Simvastatin [Zocor] 40 mg PO HS 09/05/17 [History] levETIRAcetam 500 mg PO TID 09/05/17 [History] amLODIPine [Norvasc] 5 mg PO DAILY@1630 02/13/18 [History] Propylene Glycol/Peg 400/Pf [Systane 0.3-0.4% Eye Drops] 1 drop BOTH EYES DAILY 04/02/18 [History] HYDROcodone/APAP 5-325MG [[place] 5-325] 1 tab PO Q4HR PRN 3 Days #18 tab [Rx] Follow up Appointment(s)/Referral(s): Sophie Aguilar MD [STAFF PHYSICIAN] - 04/08/18 ([place]) Patient Instructions/Handouts: Colectomy (GEN), Colectomy Diet (GEN) Activity/Diet/Wound Care/Special Instructions: No lifting over 4 pounds in 4 weeks. May shower. No bath tub soaks. Dressing to be removed by surgeon in the office. Liquid diet including protein shakes. Discharge Disposition: HOME SELF-CARE
== END 2018-04-04 15:30 | disposition home or self-care (01) | DRG 331 ==
LOC: 2ORMAIN 10:12 → 3SUR 16:50
PROVIDERS: ADMIT Surgery Plastic and Reconstructive Surgery; ATTEND Surgery Plastic and Reconstructive Surgery
PROC: 8E0W4CZ Robotic Assisted Procedure of Trunk Region, Percutaneous Endoscopic Approach (ICD-10-PCS; 2018-04-02)
PROC: 0DBN4ZZ Excision of Sigmoid Colon, Percutaneous Endoscopic Approach (ICD-10-PCS; principal; 2018-04-02 12:05)
DX: K57.32 Diverticulitis of large intestine without perforation or abscess without bleeding (principal); E78.5 Hyperlipidemia, unspecified; G40.909 Epilepsy, unspecified, not intractable, without status epilepticus; G50.0 Trigeminal neuralgia; H91.90 Unspecified hearing loss, unspecified ear; I11.9 Hypertensive heart disease without heart failure; I25.10 Atherosclerotic heart disease of native coronary artery without angina pectoris; K21.9 Gastro-esophageal reflux disease without esophagitis; M19.90 Unspecified osteoarthritis, unspecified site; Z79.899 Other long term (current) drug therapy; Z80.0 Family history of malignant neoplasm of digestive organs; Z80.6 Family history of leukemia; Z88.6 Allergy status to analgesic agent; Z88.1 Allergy status to other antibiotic agents; Z88.5 Allergy status to narcotic agent; Z88.2 Allergy status to sulfonamides; G43.909 Migraine, unspecified, not intractable, without status migrainosus; Z98.42 Cataract extraction status, left eye; Z98.41 Cataract extraction status, right eye; I95.2 Hypotension due to drugs; T41.3X5A Adverse effect of local anesthetics, initial encounter
CPT/HCPCS: 80048; 80053; 83036; 85025; 86850; 86900; 86901; 88307

== ENCOUNTER 2018-04-06 11:25 | Inpatient (IN) | payer MEDICARE ==
--- NOTE | 2018-04-06 11:32 | ED ---
General Adult HPI - General Stated complaint: bowel obstruction Time Seen by Provider: 04/06/18 11:26 Source: RN notes reviewed - History of Present Illness Initial comments: This is a 9-year-old female who is brought in to the hospital from [facility]. Patient was seen here today for abdominal pain. Patient had abdominal surgery by Dr. Bonilla on and was discharged home on Friday. Patient states last night in the middle the night she started having quite a bit of lower abdominal pain. Patient went [facility] was diagnosed with a small bowel obstruction. Patient also had a small hernia in the abdominal wall on the left side. Patient denies any recent fever chills or cough. Patient denies any leg pain or swelling. Patient denies any nausea or vomiting. - Related Data Home Medications Medication Instructions Recorded Confirmed Acetaminophen [Tylenol Arthritis] 1,300 mg PO BID PRN 09/05/17 04/02/18 Ascorbic Acid [Vitamin C] 500 mg PO DAILY 09/05/17 04/02/18 Calcium Carb-Vit D 500Mg-200Un 1 tab PO DAILY 09/05/17 04/02/18 [Oscal 500+D] Cholecalciferol (Vitamin D3) 2,000 unit PO DAILY 09/05/17 04/02/18 [Vitamin D3] Metoprolol Tartrate [Lopressor] 50 mg PO BID 09/05/17 04/02/18 Multivit-Min/Iron/Folic/Lutein 1 tab PO DAILY 09/05/17 04/02/18 [Centrum Silver Women Tablet] Simvastatin [Zocor] 40 mg PO HS 09/05/17 04/02/18 levETIRAcetam 500 mg PO TID 09/05/17 04/02/18 amLODIPine [Norvasc] 5 mg PO DAILY@1630 02/13/18 04/02/18 Propylene Glycol/Peg 400/Pf 1 drop BOTH EYES DAILY 04/02/18 04/02/18 [Systane 0.3-0.4% Eye Drops] Previous Rx's Medication Instructions Recorded HYDROcodone/APAP 5-325MG [[place] 1 tab PO Q4HR PRN 3 Days #18 tab 04/04/18 5-325] Allergies Allergy/AdvReac Type Severity Reaction Status Date / Time levofloxacin [From Levaquin] Allergy Rash/Hives Verified 04/02/18 17:32 metronidazole [From Flagyl] Allergy Rash/Hives Verified 04/02/18 17:32 aspirin AdvReac Abdominal Verified 04/02/18 17:32 Pain neomycin AdvReac Vomiting Verified 04/02/18 17:32 propoxyphene AdvReac Nausea & Verified 04/02/18 17:32 [From Darvocet-N] Vomiting sulfamethoxazole AdvReac DIZZY Verified 04/02/18 17:32 [From Bactrim] tramadol AdvReac DIZZY Verified 04/02/18 17:32 trimethoprim [From Bactrim] AdvReac DIZZY Verified 04/02/18 17:32 Review of Systems ROS Statement: Those systems with pertinent positive or pertinent negative responses have been documented in the HPI. ROS Other: All systems not noted in ROS Statement are negative. Past Medical History Past Medical History: GERD/Reflux, Hearing Disorder / Deafness, Hyperlipidemia, Hypertension, Osteoarthritis (OA) Additional Past Medical History / Comment(s): hx migraines, diveticulosis, trigeminal nerve pain, leakage of urine, ATKA History of Any Multi-Drug Resistant Organisms: None Reported Past Surgical History: Breast Surgery, Section, Heart Catheterization Additional Past Surgical History / Comment(s): SILVIA CATARACTS REMOVED, CYST REMOVED FROM RT BREAST, FATTY MASS REMOVED FROM RECTUM, colonoscopy, EGD, Past Anesthesia/Blood Transfusion Reactions: No Reported Reaction Past Psychological History: No Psychological Hx Reported Smoking Status: Never smoker Past Alcohol Use History: None Reported Past Drug Use History: None Reported - Past Family History Father Family Medical History: Cancer Additional Family Medical History / Comment(s): COLON CANCER, LEUKEMIA General Exam - General Exam Comments Initial Comments: GENERAL: Patient is well-developed and well-nourished. Patient is nontoxic and well- hydrated and is in mild distress. ENT: Neck is soft and supple. No significant lymphadenopathy is noted. Oropharynx is clear. Moist mucous membranes. Neck has full range of motion without eliciting any pain. EYES: The sclera were anicteric and conjunctiva were pink and moist. Extraocular movements were intact and pupils were equal round and reactive to light. Eyelids were unremarkable. PULMONARY: Unlabored respirations. Good breath sounds bilaterally. No audible rales rhonchi or wheezing was noted. CARDIOVASCULAR: There is a regular rate and rhythm without any murmurs gallops or rubs. ABDOMEN: Patient has lower abdominal pain slightly more on the left than the right. No rebound SKIN: Skin is clear with no lesions or rashes and otherwise unremarkable. NEUROLOGIC: Patient is alert and oriented x3. Cranial nerves II through XII are grossly intact. Motor and sensory are also intact. Normal speech, volume and content. Symmetrical smile. MUSCULOSKELETAL: Normal extremities with adequate strength and full range of motion. No lower extremity swelling or edema. No calf tenderness. LYMPHATICS: No significant lymphadenopathy is noted PSYCHIATRIC: Normal psychiatric evaluation. Course Vital Signs 04/06/18 11:34 Temperature 98.4 F Pulse Rate 83 Respiratory 17 Rate Blood Pressure 123/63 O2 Sat by Pulse 95 Oximetry Medical Decision Making - Medical Decision Making I reviewed the patient's paperwork from [facility]. I spoke with Dr. Bonilla she agreed to admit the patient admitted the patient I wrote admitting orders. Disposition Clinical Impression: Small bowel obstruction Disposition: ADMITTED IP TO THIS HOSP Referrals: Catracho Holley MD [Primary Care Provider] - 1-2 days Time of Disposition: 11:42
[2018-04-06] MEDS ORDERED: SODIUM CHLORIDE 0.9% 1,000 ML IV ONE (11:42)
[2018-04-06 12:29] VITALS: BMI 26.4
[2018-04-06] MEDS ORDERED: ceFAZolin IN SWFI 2 GM/20 ML SYRINGE IVP ONE (12:39)
[2018-04-06] MEDS: HYDROmorphone 1 MG/ML 1 ML SYRINGE IVP PRN (14:13)
[2018-04-06] MEDS ORDERED: SODIUM CHLORIDE 0.9% 2,000 ML IV ONE (14:53)
--- NOTE | 2018-04-06 14:53 | P.GSHP ---
History of Present Illness H&P Date: 04/06/18 CHIEF COMPLAINT: Abdominal pain HISTORY OF PRESENT ILLNESS: The patient is a 72 year old female who presents after recent discharge 3 days ago from a robotic colectomy. She was doing very well upon discharge including 24 hours following her hospitalization. She reports sitting down and then coughing last night. After that she felt pain along the left lower abdomen with new onset abdominal distention. She went to her local emergency room in [facility]. Additional CT studies showed an incarcerated incisional hernia since her transfer to [facility]. PAST MEDICAL HISTORY: See list. PAST SURGICAL HISTORY: See list. MEDICATIONS: See list. ALLERGIES: See list. SOCIAL HISTORY: No illicit drug use FAMILY HISTORY: No reports of Crohn's disease or inflammatory bowel disease REVIEW OF ORGAN SYSTEMS: CONSTITUTIONAL: No fevers or chills HEENT: Wears glasses. His heart of hearing. No reports of dysphagia. ENDOCRINE: No reports of thyroid disorders. No diabetes. CARDIOVASCULAR: No heart attack. No chest pain. RESPIRATORY: No shortness of breath or pneumonia. GASTROINTESTINAL: No reports of recent blood in stools. Has gastroesophageal reflux disease. Recent colon resection for diverticulosis NEURO: No reports of stroke or seizure disorders. Has trigeminal neuralgia PSYCH: No depression or suicidal ideation HEMATOLOGIC: No easy bruising or bleeding LYMPHATIC: The patient denies any lumps and bumps around the neck. GENITOURINARY: Denies any blood in urine or increased urinary frequency. MUSCULOSKELETAL: Has back pain, stiffness or joint arthritis. SKIN: No skin cancer or rash per PHYSICAL EXAM: VITAL SIGNS: Currently stable. GENERAL: Well-developed in no acute distress. HEENT: No sclera icterus. Extraocular movements grossly intact. Moist buccal mucosa. Head is atraumatic, normocephalic. Hears conversational speech. No nasal drainage. NECK: Supple without lymphadenopathy. CHEST: Non-labored respirations and equal bilateral excursions. CARDIOVASCULAR: Regular rate with regular rhythm. Palpable 2+ radial pulses. ABDOMEN: Soft. Mild distention. Localized tenderness left upper quadrant. No peritonitis. MUSCULOSKELETAL: No clubbing, cyanosis or edema. NEUROLOGIC: No focal or lateralizing signs. Cranial nerves II through XII grossly intact. PSYCH: Appropriate affect. Alert and oriented to person, place and time. SKIN: Well perfused. Good skin turgor. LABS: Reviewed STUDIES: CT of the abdomen and pelvis personally reviewed consistent with small bowel obstruction from incisional hernia ASSESSMENT: 1. Small bowel obstruction from incisional hernia PLAN: 1. Nothing by mouth 2. IV fluid hydration 3. Diagnostic laparoscopy with repair of incisional hernia 4. Hospitalization anticipated overnight Past Medical History Past Medical History: GERD/Reflux, Hearing Disorder / Deafness, Hyperlipidemia, Hypertension, Osteoarthritis (OA) Additional Past Medical History / Comment(s): hx migraines, diveticulosis, trigeminal nerve pain, leakage of urine, MAKAH History of Any Multi-Drug Resistant Organisms: None Reported Past Surgical History: Breast Surgery, Section, Heart Catheterization Additional Past Surgical History / Comment(s): SILVIA CATARACTS REMOVED, CYST REMOVED FROM RT BREAST, FATTY MASS REMOVED FROM RECTUM, colonoscopy, EGD, Past Anesthesia/Blood Transfusion Reactions: No Reported Reaction Past Psychological History: No Psychological Hx Reported Smoking Status: Never smoker Past Alcohol Use History: None Reported Past Drug Use History: None Reported - Past Family History Father Family Medical History: Cancer Additional Family Medical History / Comment(s): COLON CANCER, LEUKEMIA Medications and Allergies Home Medications Medication Instructions Recorded Confirmed Type Acetaminophen [Tylenol Arthritis] 1,300 mg PO BID PRN 09/05/17 04/06/18 History Ascorbic Acid [Vitamin C] 500 mg PO DAILY 09/05/17 04/06/18 History Calcium Carb-Vit D 500Mg-200Un 1 tab PO DAILY 09/05/17 04/06/18 History [Oscal 500+D] Cholecalciferol (Vitamin D3) 2,000 unit PO DAILY 09/05/17 04/06/18 History [Vitamin D3] Metoprolol Tartrate [Lopressor] 50 mg PO BID 09/05/17 04/06/18 History Multivit-Min/Iron/Folic/Lutein 1 tab PO DAILY 09/05/17 04/06/18 History [Centrum Silver Women Tablet] Simvastatin [Zocor] 40 mg PO HS 09/05/17 04/06/18 History levETIRAcetam 500 mg PO TID 09/05/17 04/06/18 History amLODIPine [Norvasc] 5 mg PO DAILY@1630 02/13/18 04/06/18 History Propylene Glycol/Peg 400/Pf 1 drop BOTH EYES DAILY 04/02/18 04/06/18 History [Systane 0.3-0.4% Eye Drops] HYDROcodone/APAP 5-325MG [[place] 1 tab PO Q4HR PRN 3 Days #18 tab 04/04/18 Rx 5-325] Allergies Allergy/AdvReac Type Severity Reaction Status Date / Time levofloxacin [From Levaquin] Allergy Rash/Hives Verified 04/06/18 11:47 metronidazole [From Flagyl] Allergy Rash/Hives Verified 04/06/18 11:47 aspirin AdvReac Abdominal Verified 04/06/18 11:47 Pain neomycin AdvReac Vomiting Verified 04/06/18 11:47 propoxyphene AdvReac Nausea & Verified 04/06/18 11:47 [From Darvocet-N] Vomiting sulfamethoxazole AdvReac DIZZY Verified 04/06/18 11:47 [From Bactrim] tramadol AdvReac DIZZY Verified 04/06/18 11:47 trimethoprim [From Bactrim] AdvReac DIZZY Verified 04/06/18 11:47 Surgical - Exam Vital Signs Temp Pulse Resp BP Pulse Ox 98.4 F 83 17 123/63 95 04/06/18 11:34 04/06/18 11:34 04/06/18 11:34 04/06/18 11:34 04/06/18 11:34
[2018-04-06] MEDS ORDERED: IV FLUID CONTINUATION 1,000 ML IV ONE (15:46)
[2018-04-06] MEDS ORDERED: ONDANSETRON 4 MG/2 ML VIAL IVP ONE (16:03)
[2018-04-06] MEDS ORDERED: DEXAMETHASONE SOD PHOS (MDV) 100 MG/10 ML VIAL IV ONE (16:03)
[2018-04-06] MEDS ORDERED: FAMOTIDINE 20 MG/2 ML VIAL IV ONE (16:04)
[2018-04-06] MEDS ORDERED: GLYCOPYRROLATE 0.2 MG/ML 2 ML VIAL ONE (17:36)
[2018-04-06] MEDS ORDERED: ROCURONIUM BROMIDE 10 MG/ML 10 ML VIAL IV ONE (17:36)
[2018-04-06] MEDS ORDERED: NEOSTIGMINE 1 MG/ML 10 ML VIAL ONE (17:36)
[2018-04-06] MEDS ORDERED: PROPOFOL 10 MG/ML 20 ML VIAL IV ONE (17:36)
[2018-04-06] MEDS ORDERED: MIDAZOLAM 2 MG/2 ML VIAL ONE (17:36)
[2018-04-06] MEDS ORDERED: fentaNYL (PF) 50 MCG/ML 2 ML AMP ONE (17:36)
[2018-04-06] MEDS ORDERED: LIDOCAINE 1% INJ 10MG/ML (20 ML MDV) ONE (17:36)
[2018-04-06] MEDS ORDERED: SUCCINYLCHOLINE CHLORIDE 100 MG/5 ML SYR IV ONE (17:36)
[2018-04-06] MEDS ORDERED: BUPIVACAINE (PF) 0.5% 30 ML VIAL SQ ONE ×2 (18:08)
[2018-04-06] MEDS ORDERED: ACETAMINOPHEN IV (For NPO) 1,000 MG in EMPTY BAG 1 BAG IVPB ONE (18:48)
[2018-04-06] MEDS ORDERED: ONDANSETRON 4 MG/2 ML VIAL IVP PRN (18:48)
[2018-04-06] MEDS ORDERED: HYDROmorphone 1 MG/ML 1 ML SYRINGE IVP PRN (18:48)
[2018-04-06] MEDS ORDERED: NALOXONE 0.4 MG/ML 1 ML VIAL IV PRN (18:48)
--- NOTE | 2018-04-06 18:48 | P.OP ---
Date of Procedure: 04/06/18 Description of Procedure: SURGEON: MESHA WELLINGTON MD PREOPERATIVE DIAGNOSES: 1. Small bowel obstruction due to incisional hernia, left upper quadrant 2. History of recent colectomy 3. Gastroesophageal reflux disease 4. Hypertensive heart disease 5. Seizure disorder 6. Trigeminal neuralgia 6. History of multiple drug ALLERGIES 7. History of coronary artery disease POSTOPERATIVE DIAGNOSES: 1. Small bowel obstruction due to incarcerated incisional hernia, left upper quadrant 2. History of recent colectomy 3. Gastroesophageal reflux disease 4. Hypertensive heart disease 5. Seizure disorder 6. Trigeminal neuralgia 6. History of multiple drug ALLERGIES 7. History of coronary artery disease OPERATION: 1. Laparoscopic repair of incarcerated incisional hernia, left upper quadrant without mesh 2. Laparoscopic lysis of adhesions ANESTHESIA: General with local ESTIMATED BLOOD LOSS: 5 mL SPECIMENS REMOVED: None FINDINGS: 1. Small bowel obstruction due to left upper quadrant incision reduced with small bowel viable 2. Adhesionolysis performed 3. Over 1500 mL of bile evacuated from stomach via NG tube INDICATIONS: The patient is a 72-year-old female who successfully underwent a robotic colectomy for diverticulitis and stricture. She was doing remarkably well postop and was discharged home less than 4 days ago. She was doing well up until yesterday when upon sitting down she had violent cough then she felt pain and new swelling along her left upper abdomen for the first time. She then presented to the emergency room with findings of a bowel obstruction due to incisional hernia. Surgical options were described. Benefits and risks, including infection, possibility for additional surgery was discussed at length. Informed consent was obtained. DESCRIPTION: The patient was transferred to the operating room and placed supine. After general induction, the patient was then intubated. A Winters catheter was avoided. NG tube placed per anesthesia evacuated more than 1500 mL of bile from her stomach. The abdomen was then prepped and draped in standard sterile fashion. After a timeout protocol was performed, attention was brought to the abdomen to use her previous incisions. A right upper quadrant incision was performed whereby a 0 degree 5 mm laparoscopic trocar entry was performed. The abdominal cavity was entered and insufflated to 15 mmHg pressure, which she tolerated well. Diagnostic laparoscopy confirmed small bowel incarcerated along the left upper quadrant incision with bowel obstruction. Another 5 mm port was placed along the epigastrium. The left upper quadrant incision was reopened carefully. Using digital palpation, the subcutaneous tissue of the left upper quadrant was palpated. Using an atraumatic grasper, the small bowel was gently reduced from the incisional hernia in total and without ischemia and completely viable. The left upper quadrant incision was reapproximated using 0 Vicryl and a Mateo Benitez at least 3 throws to completely close the fascia. Separately , attention was brought to the right upper quadrant where fascial defect over 5 mm was similarly closed. Lysis of adhesions was also performed. Endoscopic imaging before and after were obtained. The trocar sites were irrigated using warm normal saline and hydrogen peroxide solution. Local anesthetic was infiltrated to all wounds for postop analgesia. An Optifoam surgical dressing was placed over the left upper quadrant. Liquid glue was applied to the rest of the skin incisions. The patient had tolerated the procedure well. Estimated blood loss was approximately 5 mL. The patient was extubated successfully. Intraoperative photos were obtained. The patient was transferred to the postanesthesia care unit in stable condition.
[2018-04-06] MEDS: KETOROLAC 30 MG/ML 1 ML VIAL IVP SCH (20:01)
[2018-04-07] MEDS: HYDROmorphone 1 MG/ML 1 ML SYRINGE IVP PRN (04:55)
[2018-04-07] MEDS: KETOROLAC 30 MG/ML 1 ML VIAL IVP SCH ×3 (08:08→13:07)
[2018-04-07 08:16] VITALS: BP 127/77; PULSE 81; RESP 14; TEMP 98.6
[2018-04-07 08:21] LABS: Anion Gap 9 mmol/L; Blood Urea Nitrogen 11 mg/dL (7-17); Calcium 8.8 mg/dL (8.4-10.2); Carbon Dioxide 23 mmol/L (22-30); Chloride 105 mmol/L (98-107); Glucose 83 mg/dL (74-99); Magnesium 1.8 mg/dL (1.6-2.3); Phosphorus 3.8 mg/dL (2.5-4.5); Sodium 137 mmol/L (137-145)
[2018-04-07 08:23] LABS: Basophils % (A) 0 %; Eosinophils % (A) 0 %; HCT 35.6 % (34.0-46.0); HGB 11.4 gm/dL (11.4-16.0); Lymphocytes % (A) 9 %; MCH 31.1 pg (25.0-35.0); MCHC 32.1 g/dL (31.0-37.0); MCV 96.9 fL (80.0-100.0); Mean Platelet Volume 8.4; Monocytes # (A) 0.8 k/uL (0-1.0); Monocytes % (A) 7 %; Neutrophils # (A) 9.4 k/uL (1.3-7.7); Neutrophils % (A) 84 %; Platelet Count 237 k/uL (150-450); RBC 3.67 m/uL (3.80-5.40); RDW 12.5 % (11.5-15.5); WBC 11.3 k/uL (3.8-10.6)
[2018-04-07 08:30] LABS: Potassium 4.2 mmol/L (3.5-5.1)
[2018-04-07] MEDS ORDERED: HYDROcodone/APAP 5-325MG 1 EACH TAB PO PRN (08:30)
[2018-04-07] MEDS ORDERED: ENOXAPARIN 40 MG/0.4 ML SYRINGE SQ SCH (09:00)
[2018-04-07] MEDS ORDERED: METOPROLOL TARTRATE 50 MG TAB PO SCH (09:00)
[2018-04-07] MEDS ORDERED: PANTOPRAZOLE 40 MG/10 ML VIAL IV SCH (09:00)
[2018-04-07] MEDS ORDERED: levETIRAcetam 500 MG TAB PO SCH (09:00)
[2018-04-07] MEDS ORDERED: ARTIFICIAL TEARS-HYPROMELLOSE DROPS 15 ML BTL BOTH EYES SCH (09:00)
--- NOTE | 2018-04-07 09:42 | P.DS ---
Providers Date of admission: 04/06/18 11:43 Expected date of discharge: 04/07/18 Attending physician: Sophie Aguilar Primary care physician: Catracho Holley [facility] Course: The patient is a 72 year old female who presents after recent discharge 3 days ago from a robotic colectomy. She was doing very well upon discharge including 24 hours following her hospitalization. She reports sitting down and then coughing last night. After that she felt pain along the left lower abdomen with new onset abdominal distention. She went to her local emergency room in [facility]. Additional CT studies showed an incarcerated incisional hernia since her transfer to [facility] No postop events on the day of discharge up ambulating surgical dressings dry abdominal binder in place pain medication effective for pain control .Laparoscopic repair of incarcerated incisional hernia, left upper quadrant without mesh done April 06 Laparoscopic lysis of adhesions Impression discharge diagnosis Laparoscopic repair of incarcerated incisional hernia, left upper quadrant without mesh done April 06 Laparoscopic lysis of adhesions Small bowel obstruction due to incarcerated incisional hernia, left upper quadrant 2. History of recent colectomy 3. Gastroesophageal reflux disease 4. Hypertensive heart disease 5. Seizure disorder 6. Trigeminal neuralgia 6. History of multiple drug ALLERGIES 7. History of coronary artery disease The above impression and plan of care have been discussed and directed by signing physician. Jamilah Schaffer nurse practitioner acting as scribe for signing physician. Plan - Discharge Summary New Discharge Prescriptions: No Action Ascorbic Acid [Vitamin C] 500 mg PO DAILY Simvastatin [Zocor] 40 mg PO HS Metoprolol Tartrate [Lopressor] 50 mg PO BID levETIRAcetam 500 mg PO TID Multivit-Min/Iron/Folic/Lutein [Centrum Silver Women Tablet] 1 tab PO DAILY Cholecalciferol (Vitamin D3) [Vitamin D3] 2,000 unit PO DAILY Calcium Carb-Vit D 500Mg-200Un [Oscal 500+D] 1 tab PO DAILY Acetaminophen [Tylenol Arthritis] 1,300 mg PO BID PRN PRN Reason: Pain amLODIPine [Norvasc] 5 mg PO DAILY@1630 Propylene Glycol/Peg 400/Pf [Systane 0.3-0.4% Eye Drops] 1 drop BOTH EYES DAILY HYDROcodone/APAP 5-325MG [[place] 5-325] 1 tab PO Q4HR PRN 3 Days #18 tab PRN Reason: Pain Discharge Medication List Acetaminophen [Tylenol Arthritis] 1,300 mg PO BID PRN 09/05/17 [History] Ascorbic Acid [Vitamin C] 500 mg PO DAILY 09/05/17 [History] Calcium Carb-Vit D 500Mg-200Un [Oscal 500+D] 1 tab PO DAILY 09/05/17 [History] Cholecalciferol (Vitamin D3) [Vitamin D3] 2,000 unit PO DAILY 09/05/17 [History] Metoprolol Tartrate [Lopressor] 50 mg PO BID 09/05/17 [History] Multivit-Min/Iron/Folic/Lutein [Centrum Silver Women Tablet] 1 tab PO DAILY [History] Simvastatin [Zocor] 40 mg PO HS 09/05/17 [History] levETIRAcetam 500 mg PO TID 09/05/17 [History] amLODIPine [Norvasc] 5 mg PO DAILY@1630 02/13/18 [History] Propylene Glycol/Peg 400/Pf [Systane 0.3-0.4% Eye Drops] 1 drop BOTH EYES DAILY 04/02/18 [History] HYDROcodone/APAP 5-325MG [[place] 5-325] 1 tab PO Q4HR PRN 3 Days #18 tab [Rx] Follow up Appointment(s)/Referral(s): Catracho Holley MD [Primary Care Provider] - 04/09/18 10:00 am Sophie Aguilar MD [STAFF PHYSICIAN] - 04/08/18 8:45 am ([place] Office ) Patient Instructions/Handouts: Bowel Obstruction (DC) Activity/Diet/Wound Care/Special Instructions: No tub bath for six weeks. Shower daily. No lifting over 10 pounds for the next 6 weeks. Wear abdominal binder when up. May use ice packs to surgical site. No driving while taking narcotic for pain. To see Dr. Aguilar and the [facility] tomorrow April 08 Discharge Disposition: HOME SELF-CARE
[2018-04-07] MEDS ORDERED: amLODIPine 5 MG TAB PO SCH (16:30)
[2018-04-07] MEDS ORDERED: ATORVASTATIN 20 MG TAB PO SCH (21:00)
--- NOTE | 2018-04-09 02:40 | CDI ---
Last Revision, July 2017 Documentation Clarification Form Date: 04/09/2018 2:28:48 AM From: Nati Etienne Phone: If you have a question about this query, please contact Carmel Dougherty Manager Car at [phone] between 8am and 5pm. Admit Date: 04/06/2018 11:43:00 AM Patient Name: Destiney Gupta Visit Number: [id number] Discharge Date: 04/07/18 ATTENTION: The Clinical Documentation Specialists (CDI) and [facility] Coding Staff appreciate your assistance in clarifying documentation. Please respond to the clarification below the line at the bottom and electronically sign. The CDI & [facility] Coding staff will review the response and follow-up if needed. Please note: Queries are made part of the Legal Health Record. If you have any questions, please contact the author of this message via ITS. Dr. WELLINGTON, Sophie Taylor MD Documentation in the Operative Report included: Laparoscopic lysis of adhesions History/Risk factors: SBO Pre-Operative Diagnosis: SBO due to incarcerated incisional hernia, LUQ Postoperative Diagnosis: Same Treatment: Hernia repair laparoscopic lysis of adhesions In order to capture the severity of condition, please specify the following: Abdominal adhesions extensive Abdominal adhesions not extensive Abdominal adhesions not extensive KM 03/30/18 @ 16:13 MTDD
== END 2018-04-07 13:54 | disposition home or self-care (01) | DRG 354 ==
LOC: EC 11:25 → 3SUR 11:43
PROVIDERS: ADMIT Surgery Plastic and Reconstructive Surgery; ATTEND Surgery Plastic and Reconstructive Surgery
PROC: 0WQF4ZZ Repair Abdominal Wall, Percutaneous Endoscopic Approach (ICD-10-PCS; principal; 2018-04-06 08:35)
DX: K43.0 Incisional hernia with obstruction, without gangrene (principal); K56.50 Intestinal adhesions [bands], unspecified as to partial versus complete obstruction; E78.5 Hyperlipidemia, unspecified; Z90.49 Acquired absence of other specified parts of digestive tract; G40.909 Epilepsy, unspecified, not intractable, without status epilepticus; G50.0 Trigeminal neuralgia; H91.90 Unspecified hearing loss, unspecified ear; I11.9 Hypertensive heart disease without heart failure; I25.10 Atherosclerotic heart disease of native coronary artery without angina pectoris; K21.9 Gastro-esophageal reflux disease without esophagitis; Z80.0 Family history of malignant neoplasm of digestive organs; Z80.6 Family history of leukemia; Z88.6 Allergy status to analgesic agent; Z88.1 Allergy status to other antibiotic agents; Z88.5 Allergy status to narcotic agent; Z88.2 Allergy status to sulfonamides; Z88.8 Allergy status to other drugs, medicaments and biological substances
CPT/HCPCS: 80048; 83735; 84100; 85025; 99284

== ENCOUNTER 2018-05-17 19:19 | Inpatient (IN) | payer MEDICARE ==
--- NOTE | 2018-05-17 20:34 | ED ---
Abdominal Pain HPI - General Chief Complaint: Abdominal Pain Stated Complaint: Abdominal Pain Time Seen by Provider: 05/17/18 19:21 Source: patient, RN notes reviewed, old records reviewed Mode of arrival: EMS Limitations: no limitations - History of Present Illness Initial Comments: This is a 72-year-old female the ER with calm. Medical history, could've surgical history is patient of this hospital, Dr. Bonilla for surgical treatment. Patient was found except in transfer for possible tests analysis of her sigmoid and rectum. Patient has mild abdominal pain left lower quadrant abdominal pain. No fevers no nausea, patient feels like she is had some decreased bowel movements as of late. MD Complaint: abdominal pain -: days(s) Location: diffuse, LLQ Radiation: LLQ Severity: mild Severity scale (1-10): 6 Quality: cramping, aching Consistency: constant Improves With: nothing Worsens With: nothing Context: recent surgery/procedure Associated Symptoms: nausea - Related Data Home Medications Medication Instructions Recorded Confirmed Acetaminophen [Tylenol Arthritis] 1,300 mg PO BID PRN 09/05/17 05/17/18 Ascorbic Acid [Vitamin C] 500 mg PO DAILY 09/05/17 05/17/18 Calcium Carb-Vit D 500Mg-200Un 1 tab PO DAILY 09/05/17 05/17/18 [Oscal 500+D] Cholecalciferol (Vitamin D3) 2,000 unit PO DAILY 09/05/17 05/17/18 [Vitamin D3] Metoprolol Tartrate [Lopressor] 50 mg PO BID 09/05/17 05/17/18 Multivit-Min/Iron/Folic/Lutein 1 tab PO DAILY 09/05/17 05/17/18 [Centrum Silver Women Tablet] Simvastatin [Zocor] 40 mg PO HS 09/05/17 05/17/18 levETIRAcetam 500 mg PO TID 09/05/17 05/17/18 amLODIPine [Norvasc] 5 mg PO DAILY@1630 02/13/18 05/17/18 Propylene Glycol/Peg 400/Pf 1 drop BOTH EYES DAILY 04/02/18 05/17/18 [Systane 0.3-0.4% Eye Drops] Previous Rx's Medication Instructions Recorded HYDROcodone/APAP 5-325MG [[place] 1 tab PO Q4HR PRN 3 Days #18 tab 04/04/18 5-325] Allergies Allergy/AdvReac Type Severity Reaction Status Date / Time levofloxacin [From Levaquin] Allergy Rash/Hives Verified 04/06/18 11:47 metronidazole [From Flagyl] Allergy Rash/Hives Verified 04/06/18 11:47 aspirin AdvReac Abdominal Verified 04/06/18 11:47 Pain neomycin AdvReac Vomiting Verified 04/06/18 11:47 propoxyphene AdvReac Nausea & Verified 04/06/18 11:47 [From Darvocet-N] Vomiting sulfamethoxazole AdvReac DIZZY Verified 04/06/18 11:47 [From Bactrim] tramadol AdvReac DIZZY Verified 04/06/18 11:47 trimethoprim [From Bactrim] AdvReac DIZZY Verified 04/06/18 11:47 Review of Systems ROS Statement: Those systems with pertinent positive or pertinent negative responses have been documented in the HPI. ROS Other: All systems not noted in ROS Statement are negative. Past Medical History Past Medical History: GERD/Reflux, Hearing Disorder / Deafness, Hyperlipidemia, Hypertension, Osteoarthritis (OA) Additional Past Medical History / Comment(s): hx migraines, diveticulosis, trigeminal nerve pain, leakage of urine, [place] History of Any Multi-Drug Resistant Organisms: None Reported Past Surgical History: Breast Surgery, Section, Heart Catheterization Additional Past Surgical History / Comment(s): SILVIA CATARACTS REMOVED, CYST REMOVED FROM RT BREAST, FATTY MASS REMOVED FROM RECTUM, colonoscopy, EGD, Past Anesthesia/Blood Transfusion Reactions: No Reported Reaction Past Psychological History: No Psychological Hx Reported Smoking Status: Never smoker Past Alcohol Use History: None Reported Past Drug Use History: None Reported - Past Family History Father Family Medical History: Cancer Additional Family Medical History / Comment(s): COLON CANCER, LEUKEMIA General Exam Limitations: no limitations General appearance: alert, in no apparent distress Head exam: Present: atraumatic, normocephalic, normal inspection Eye exam: Present: normal appearance, PERRL, EOMI. Absent: scleral icterus, conjunctival injection, periorbital swelling ENT exam: Present: normal exam, mucous membranes moist Neck exam: Present: normal inspection. Absent: tenderness, meningismus, lymphadenopathy Respiratory exam: Present: normal lung sounds bilaterally. Absent: respiratory distress, wheezes, rales, rhonchi, stridor Cardiovascular Exam: Present: regular rate, normal rhythm, normal heart sounds. Absent: systolic murmur, diastolic murmur, rubs, gallop, clicks GI/Abdominal exam: Present: soft, normal bowel sounds. Absent: distended, tenderness, guarding, rebound, rigid Extremities exam: Present: normal inspection, full ROM, normal capillary refill. Absent: tenderness, pedal edema, joint swelling, calf tenderness Back exam: Present: normal inspection Neurological exam: Present: alert, oriented X3, CN II-XII intact Psychiatric exam: Present: normal affect, normal mood Skin exam: Present: warm, dry, intact, normal color. Absent: rash Course Vital Signs 05/17/18 19:22 Temperature 98.9 F Pulse Rate 94 Respiratory 20 Rate Blood Pressure 159/70 O2 Sat by Pulse 93 L Oximetry - Reevaluation(s) Reevaluation #1: 05/17/18 21:10 Medical record transfer paperwork is reviewed Medical Decision Making - Medical Decision Making 72 female the ER with transfer for pneumatosis intestinalis, patient placed on antibiotics will admit for symptomatic management and surgical consultation Disposition Clinical Impression: Diverticulitis, S/P colectomy, Pneumatosis intestinalis Disposition: ADMITTED IP TO THIS HOSP Condition: Fair Is patient prescribed a controlled substance at d/c from ED?: No Referrals: Catracho Holley MD [Primary Care Provider] - 1-2 days
[2018-05-17] MEDS ORDERED: PANTOPRAZOLE 40 MG/10 ML VIAL IVP STA (21:07)
[2018-05-17] MEDS ORDERED: SODIUM CHLORIDE 0.9% 1,000 ML IV ONE (21:07)
[2018-05-17] MEDS ORDERED: MORPHINE SULFATE 4 MG/ML SYRINGE IVP PRN (21:07)
[2018-05-17] MEDS ORDERED: ONDANSETRON 4 MG/2 ML VIAL IVP STA (21:07)
[2018-05-17] MEDS ORDERED: MORPHINE SULFATE 4 MG/ML SYRINGE IVP STA (21:07)
[2018-05-17] MEDS ORDERED: AMPICILLIN-SULBACTAM 3 GM in SODIUM CHLORIDE 0.9% 100 ML IVPB STA (21:07)
[2018-05-17] MEDS ORDERED: ONDANSETRON 4 MG/2 ML VIAL IVP PRN (21:07)
[2018-05-17] MEDS: levETIRAcetam 250 MG TAB PO SCH (23:34)
[2018-05-18] MEDS: AMPICILLIN-SULBACTAM 3 GM in SODIUM CHLORIDE 0.9% 100 ML IVPB SCH ×3 (05:59→17:37)
[2018-05-18 07:40] VITALS: RESP 16
[2018-05-18] MEDS ORDERED: PANTOPRAZOLE 40 MG/10 ML VIAL IVP SCH (09:00)
[2018-05-18] MEDS: levETIRAcetam 250 MG TAB PO SCH ×3 (09:44→22:04)
--- NOTE | 2018-05-18 11:53 | P.GSHP ---
History of Present Illness H&P Date: 05/17/18 72-year-old female presented to the emergency room to be evaluated for left lower quadrant abdominal patient was seen earlier in the [facility] for constipation had not had a bowel movement in 3 days did use over- the-counter MiraLAX no results in the emergency room at [place] an enema was given which patient stated that she did have a bowel movement patient does have a significant past surgical history on April 02 underwent a robotic lap sigmoid colectomy for sigmoid diverticulitis. On April 06 underwent incarcerated incisional hernia repair no mesh used patient states seen being transferred there is a noted improvement in the left lower quadrant abdominal pain. Did have a bowel movement 8 AM this morning patient stated that she did note there was bright red blood in the toilet bowl nursing reports the stool was brown. Patient reports she does have hemorrhoids. Had been experiencing some rectal pain similar to her prior hemorrhoids. Abdominal x-ray consistent with constipation and fecal impaction CAT scan obtained at [facility] of the abdomen and pelvis with IV contrast reviewed the report in summary large fecal load within the rectum no free air noted labs were reviewed at [facility] white count 8.2 hemoglobin 14.7 AST and ALT not elevated - Review of Systems Comment: Essentially unremarkable except as mentioned in the present illness Past Medical History Past Medical History: GERD/Reflux, Hearing Disorder / Deafness, Hyperlipidemia, Hypertension, Osteoarthritis (OA) Additional Past Medical History / Comment(s): diveticulosis, trigeminal nerve pain, leakage of urine, [place] History of Any Multi-Drug Resistant Organisms: None Reported Past Surgical History: Breast Surgery, Section, Heart Catheterization Additional Past Surgical History / Comment(s): SILVIA CATARACTS REMOVED, CYST REMOVED FROM RT BREAST, FATTY MASS REMOVED FROM RECTUM, colonoscopy, EGD, Past Anesthesia/Blood Transfusion Reactions: No Reported Reaction Past Psychological History: No Psychological Hx Reported Smoking Status: Never smoker Past Alcohol Use History: None Reported Past Drug Use History: None Reported - Past Family History Father Family Medical History: Cancer Additional Family Medical History / Comment(s): COLON CANCER, LEUKEMIA Medications and Allergies Home Medications Medication Instructions Recorded Confirmed Type Acetaminophen [Tylenol Arthritis] 1,300 mg PO BID PRN 09/05/17 05/18/18 History Ascorbic Acid [Vitamin C] 500 mg PO DAILY 09/05/17 05/18/18 History Calcium Carb-Vit D 500Mg-200Un 1 tab PO DAILY 09/05/17 05/18/18 History [Oscal 500+D] Cholecalciferol (Vitamin D3) 2,000 unit PO DAILY 09/05/17 05/18/18 History [Vitamin D3] Metoprolol Tartrate [Lopressor] 50 mg PO BID 09/05/17 05/18/18 History Multivit-Min/Iron/Folic/Lutein 1 tab PO DAILY 09/05/17 05/18/18 History [Centrum Silver Women Tablet] Simvastatin [Zocor] 40 mg PO HS 09/05/17 05/18/18 History levETIRAcetam 500 mg PO TID 09/05/17 05/18/18 History amLODIPine [Norvasc] 5 mg PO DAILY@1630 02/13/18 05/18/18 History Propylene Glycol/Peg 400/Pf 1 drop BOTH EYES DAILY 04/02/18 05/18/18 History [Systane 0.3-0.4% Eye Drops] HYDROcodone/APAP 5-325MG [[place] 1 tab PO Q4HR PRN 3 Days #18 tab 04/04/18 Rx 5-325] Spironolactone [Aldactone] 25 mg PO DAILY 05/18/18 05/18/18 History Allergies Allergy/AdvReac Type Severity Reaction Status Date / Time levofloxacin [From Levaquin] Allergy Rash/Hives Verified 05/18/18 09:08 metronidazole [From Flagyl] Allergy Rash/Hives Verified 05/18/18 09:08 aspirin AdvReac Abdominal Verified 05/18/18 09:08 Pain neomycin AdvReac Vomiting Verified 05/18/18 09:08 propoxyphene AdvReac Nausea & Verified 05/18/18 09:08 [From Darvocet-N] Vomiting sulfamethoxazole AdvReac DIZZY Verified 05/18/18 09:08 [From Bactrim] tramadol AdvReac DIZZY Verified 05/18/18 09:08 trimethoprim [From Bactrim] AdvReac DIZZY Verified 05/18/18 09:08 Surgical - Exam Vital Signs Temp Pulse Resp BP Pulse Ox 98.9 F 94 20 159/70 93 L 05/17/18 19:22 05/17/18 19:22 05/17/18 19:22 05/17/18 19:22 05/17/18 19:22 GENERAL APPEARANCE: 72 year old female patient is alert, oriented, in no acute distress. Hard ofl hearing VITAL SIGNS: Reviewed HEENT: Head is normocephalic and atraumatic. Pupils are equal and reactive. The nares are patent. Oropharynx is clear without lesions. NECK: Supple without lymphadenopathy. Traches midline. HEART: S1, S2. Regular rate and rhythm. No murmur noted denying chest pain adequate air movement LUNGS: No crackles or wheezes are heard. ABDOMEN: Soft abdominal binder in place surgical dressing sites no redness nontender, nondistended with good bowel sounds. No peritoneal signs. No palpable organomegaly or masses. States had a bowel movement this morning states the left lower quadrant abdominal pain has improved EXTREMITIES: Normal skin color and turgor. No cyanosis, rash, ulceration, clubbing or edema. Radial pedal pulses are 2/4 bilaterally. NEUROLOGICAL: No focal deficits. Strength and sensation are grossly intact. Results - Labs 05/18/18 11:31 05/18/18 11:31 Assessment and Plan Assessment: Impression Prior to admission constipation resolved A recent laparoscopic repair of incarcerated incisional hernia left upper quadrant without mesh done April 06 April 02 robotic laparoscopic sigmoid colectomy for sigmoid diverticulitis done on the 02 of April Gastroesophageal reflux disease History of multiple drug ALLERGIES History of coronary artery disease trigeminal neuralgia CAT scan abdomen and pelvis with IV contrast obtained at another facility report show large fecal load within the rectum no free air Plan follow-up on pending labs No evidence of an acute surgical abdomen Reviewed labs and imaging done at [place] Repeat labs now Pain control DVT and GI prophylaxis IV Unasyn as ordered Further recommendations pending bowel stimuant program to be initiated The above impression and plan of care have been discussed and directed by signing physician. Jamilah Schaffer nurse practitioner acting as scribe for signing physician.
[2018-05-18] MEDS ORDERED: ACETAMINOPHEN TAB 325 MG TAB PO PRN (11:54)
[2018-05-18] MEDS ORDERED: HYDROcodone/APAP 5-325MG 1 EACH TAB PO PRN ×2 (11:54→20:42)
[2018-05-18 12:14] LABS: Basophils % (A) 0 %; Eosinophils # (A) 0.1 k/uL (0-0.7); Eosinophils % (A) 1 %; HCT 38.4 % (34.0-46.0); HGB 12.7 gm/dL (11.4-16.0); Lymphocytes # (A) 1.2 k/uL (1.0-4.8); Lymphocytes % (A) 24 %; MCH 31.9 pg (25.0-35.0); MCHC 33.2 g/dL (31.0-37.0); MCV 96.3 fL (80.0-100.0); Mean Platelet Volume 6.6; Monocytes # (A) 0.3 k/uL (0-1.0); Monocytes % (A) 6 %; Neutrophils # (A) 3.3 k/uL (1.3-7.7); Neutrophils % (A) 67 %; Platelet Count 251 k/uL (150-450); RBC 3.99 m/uL (3.80-5.40); RDW 12.4 % (11.5-15.5); WBC 4.9 k/uL (3.8-10.6)
[2018-05-18 12:22] LABS: ALT 22 U/L (9-52); AST 21 U/L (14-36); Albumin 3.6 g/dL (3.5-5.0); Alkaline Phosphatase 55 U/L (38-126); Anion Gap 9 mmol/L; Blood Urea Nitrogen 8 mg/dL (7-17); Calcium 9.2 mg/dL (8.4-10.2); Carbon Dioxide 27 mmol/L (22-30); Chloride 104 mmol/L (98-107); Glucose 70 mg/dL (74-99); Potassium 3.7 mmol/L (3.5-5.1); Sodium 140 mmol/L (137-145); Total Bilirubin 0.4 mg/dL (0.2-1.3); Total Protein 6.4 g/dL (6.3-8.2)
[2018-05-18] MEDS: HEPARIN SODIUM,PORCINE 5,000 UNIT/ML 1 ML VIAL SQ SCH ×2 (17:36→17:41)
[2018-05-18] MEDS ORDERED: amLODIPine 5 MG TAB PO SCH (20:42)
[2018-05-18] MEDS ORDERED: ARTIFICIAL TEARS-HYPROMELLOSE DROPS 15 ML BTL BOTH EYES SCH (20:45)
[2018-05-18] MEDS ORDERED: ATORVASTATIN 20 MG TAB PO SCH (21:00)
[2018-05-18] MEDS ORDERED: METOPROLOL TARTRATE 50 MG TAB PO SCH (21:00)
[2018-05-18 21:09] VITALS: BP 116/74; PULSE 83; TEMP 97.7
--- NOTE | 2018-05-18 21:53 | CONS ---
CONSULTATION DATE OF CONSULTATION: 05/18/18 REASON FOR CONSULTATION: Medical management requested by Dr. Aguilar. CONSULTATION: This is a patient I saw this afternoon. The patient's chronic stable medical conditions include GERD, hyperlipidemia but off medications, hypertension, osteoarthritis, diverticulosis, trigeminal neuralgia, and chronic urine incontinence. For 4 days the patient has known hemorrhoids and intermittently does get blood in the stool. The patient became constipated for 4 days and then had a large amount of blood that she passed. Also had some discomfort in the rectal area, decided to present to the outside hospital. The patient did have a CT scan that showed a lot of stool in the colon, rectal pneumatosis and pneumatosis and possible colitis and she was transferred here under Dr. Aguilar's service. The patient has normal white count. No fever. The patient was seen and cleared with surgical team and diet was advanced. The patient had no fever and chills. is present. REVIEW OF SYSTEMS: CONSTITUTIONAL: None. HEENT: None. RESPIRATORY: None. CARDIOVASCULAR: None. GASTROINTESTINAL: As above. Hemorrhoidal bleeding. GENITOURINARY: Urine incontinence. DERMATOLOGICAL, HEMATOLOGIC, LYMPHATIC: None. PSYCHIATRY: None. NEUROLOGIC: Trigeminal neuralgia in the face. MUSCULOSKELETAL: Arthritic pain in many joints. PAST MEDICAL HISTORY: GERD, hyperlipidemia, hypertension, osteoarthritis, diverticulosis, trigeminal neuralgia, urinary incontinence, external internal hemorrhoids. PAST SURGICAL HISTORY: Breast surgery, , cardiac catheterization, bilateral cataract, fatty mass removed from the rectum. SOCIAL HISTORY: Does not smoke or drink alcohol . FAMILY HISTORY: Of colon cancer, leukemia. HOME MEDICATIONS: 1. Keppra 500 mg p.o. t.i.d. 2. Norvasc 5 mg p.o. daily. 3. Aldactone 25 mg daily. 4. Zocor 40 mg q.h.s. 5. Systane 0.3-0.4 percent eyedrops 1 drop both eyes daily. 6. Centrum Silver 1 tablet p.o. daily. 7. Lopressor 50 mg b.i.d. 8. [place] 5 one tablet q.4h p.r.n. 9. Vitamin D3 2000 units p.o. daily. 10.Os-[place] with D 1 tablet p.o. daily. 11.Vitamin C 500 mg p.o. daily. 12.Tylenol Arthritis 30 mg p.o. b.i.d. p.r.n. ALLERGIES: To LEVAQUIN, FLAGYL, ASPIRIN, NEOMYCIN, BACTRIM, ULTRAM. PHYSICAL EXAMINATION: Temperature 97.7, pulse 82, respiration 15, blood pressure 110/70, pulse 99% on room air. GENERAL APPEARANCE: Average built, sitting at the edge of the bed, having a meal. Comfortable. EYES: Pupils equal. Conjunctivae normal. HEENT: External appearance of nose and ears normal. Oral cavity normal. NECK: JVD not raised. Mass not palpable. RESPIRATORY: Effort normal. Lungs, fair entry. CARDIOVASCULAR: First and second sounds, no edema. ABDOMEN: Soft, nontender. Liver and spleen not palpable. No suprapubic tenderness. LYMPHATIC: No lymph node palpable in neck or axillae. PSYCHIATRY: Alert and oriented x3. Mood and affect normal. NEUROLOGICAL: Pupils equal. Cranial nerves grossly intact. Power and sensation grossly intact. MUSCULOSKELETAL: Evidence of osteoarthritis especially in the hands. INVESTIGATIONS: Blood work from the outside hospital showed a sodium 136, potassium 3.6, BUN 11, creatinine 0.7. White count 8.2, hemoglobin 14.7. CT scan reported stool in the colon, rectal pneumatosis, colitis. ASSESSMENT: 1. Acute lower gastrointestinal bleed, likely hemorrhoidal in nature given that this is fresh blood and patient was constipated for 4 days. 2. Severe obstipation. The patient not having had a bowel movement for 4 days. Rectal pneumatosis probably from mucosal tear superficial. 3. Gastroesophageal reflux disease. 4. Essential hypertension. 5. Primary osteoarthritis. 6. Colonic diverticulosis. 7. Chronic trigeminal neuralgia. 8. Chronic urine incontinence. PLAN: Home medications are resumed. Patient is on IV Unasyn. Diet was advanced per Surgery. Care was discussed with the patient and the at the bedside. Questions were ordered. The patient also getting heparin for DVT prophylaxis. The patient has had no white count. No fever. Thank you Dr. Aguilar. MMODL / IJN: [id number] /
--- NOTE | 2018-05-18 22:27 | P.DS ---
Providers Date of admission: 05/17/18 21:11 Expected date of discharge: 05/18/18 Attending physician: Sophie Aguilar Consults: 05/17/18 21:53 Consult Physician Routine Consulting Provider: Elliott Vance Consult Reason/Comments: medical management Do you want consulting provider notified?: Yes Primary care physician: Catracho Robertson Holley - Discharge Diagnosis(es) (1) S/P colectomy Status: Acute (2) Constipation by delayed colonic transit Status: Acute (3) Abnormal CT of the abdomen Status: Acute Hospital Course: The patient is a 72-year-old female with known history of chronic constipation. She has a personal history of recent sigmoid colectomy performed 2 months ago. She reports having inability of bowel movements for 3 days prior to presentation to the ER. Her also reports that the patient did have an enema despite recent colon surgery in the emergency room. She had moderate rectal pain including left lower quadrant abdominal pain after the event. She was transferred secondary to an abnormal computed tomography scan. Upon transfer to [facility], she was place on a bowel regimen. She had a large bowel movement where her abdominal pain had resolved. She had an abnormal computed tomography scan that did not clinically correlate with her symptoms. Prior to discharge, she was tolerating diet. Remedies were constipation were described. Her abdominal computed tomography scan was deemed as an over read as patient clinical symptoms do not correlate with her presentation. She was stable prior to discharge. Patient Condition at Discharge: Good Plan - Discharge Summary Discharge Rx Participant: Yes New Discharge Prescriptions: New Sennosides/Docusate Sodium [Senna-S Laxative Tablet] 1 each PO DAILY PRN #30 tablet PRN Reason: Constipation Continue Ascorbic Acid [Vitamin C] 500 mg PO DAILY Simvastatin [Zocor] 40 mg PO HS Metoprolol Tartrate [Lopressor] 50 mg PO BID levETIRAcetam 500 mg PO TID Multivit-Min/Iron/Folic/Lutein [Centrum Silver Women Tablet] 1 tab PO DAILY Cholecalciferol (Vitamin D3) [Vitamin D3] 2,000 unit PO DAILY Calcium Carb-Vit D 500Mg-200Un [Oscal 500+D] 1 tab PO DAILY Acetaminophen [Tylenol Arthritis] 1,300 mg PO BID PRN PRN Reason: Pain amLODIPine [Norvasc] 5 mg PO DAILY@1630 Propylene Glycol/Peg 400/Pf [Systane 0.3-0.4% Eye Drops] 1 drop BOTH EYES DAILY Spironolactone [Aldactone] 25 mg PO DAILY Discontinued HYDROcodone/APAP 5-325MG [[place] 5-325] 1 tab PO Q4HR PRN 3 Days #18 tab PRN Reason: Pain Discharge Medication List Acetaminophen [Tylenol Arthritis] 1,300 mg PO BID PRN 09/05/17 [History] Ascorbic Acid [Vitamin C] 500 mg PO DAILY 09/05/17 [History] Calcium Carb-Vit D 500Mg-200Un [Oscal 500+D] 1 tab PO DAILY 09/05/17 [History] Cholecalciferol (Vitamin D3) [Vitamin D3] 2,000 unit PO DAILY 09/05/17 [History] Metoprolol Tartrate [Lopressor] 50 mg PO BID 09/05/17 [History] Multivit-Min/Iron/Folic/Lutein [Centrum Silver Women Tablet] 1 tab PO DAILY [History] Simvastatin [Zocor] 40 mg PO HS 09/05/17 [History] levETIRAcetam 500 mg PO TID 09/05/17 [History] amLODIPine [Norvasc] 5 mg PO DAILY@1630 02/13/18 [History] Propylene Glycol/Peg 400/Pf [Systane 0.3-0.4% Eye Drops] 1 drop BOTH EYES DAILY 04/02/18 [History] Sennosides/Docusate Sodium [Senna-S Laxative Tablet] 1 each PO DAILY PRN #30 tablet 05/18/18 [Rx] Spironolactone [Aldactone] 25 mg PO DAILY 05/18/18 [History] Follow up Appointment(s)/Referral(s): Catracho Holley MD [Primary Care Provider] - 1-2 days Sophie Aguilar MD [STAFF PHYSICIAN] - As Needed Patient Instructions/Handouts: Constipation (DC) Activity/Diet/Wound Care/Special Instructions: Take MiraLAX or senna for bowel movements daily. NO ENEMAS. Discharge Disposition: HOME SELF-CARE
[2018-05-19] MEDS ORDERED: SPIRONOLACTONE 25 MG TAB PO SCH (09:00)
== END 2018-05-18 23:03 | disposition home or self-care (01) | DRG 392 ==
LOC: EC 19:19 → 3SUR 21:11
PROVIDERS: ADMIT Surgery Plastic and Reconstructive Surgery; ATTEND Surgery Plastic and Reconstructive Surgery
DX: K59.01 Slow transit constipation (principal); K63.89 Other specified diseases of intestine; E78.5 Hyperlipidemia, unspecified; G50.0 Trigeminal neuralgia; H91.90 Unspecified hearing loss, unspecified ear; I10 Essential (primary) hypertension; I25.10 Atherosclerotic heart disease of native coronary artery without angina pectoris; K21.9 Gastro-esophageal reflux disease without esophagitis; K64.9 Unspecified hemorrhoids; M19.91 Primary osteoarthritis, unspecified site; R32 Unspecified urinary incontinence; Z79.899 Other long term (current) drug therapy; Z80.0 Family history of malignant neoplasm of digestive organs; Z80.6 Family history of leukemia; Z88.9 Allergy status to unspecified drugs, medicaments and biological substances; Z90.49 Acquired absence of other specified parts of digestive tract; Z88.1 Allergy status to other antibiotic agents; Z88.5 Allergy status to narcotic agent; Z88.2 Allergy status to sulfonamides; Z88.8 Allergy status to other drugs, medicaments and biological substances; Z98.42 Cataract extraction status, left eye; Z98.41 Cataract extraction status, right eye; Z88.6 Allergy status to analgesic agent; K57.30 Diverticulosis of large intestine without perforation or abscess without bleeding
CPT/HCPCS: 80053; 85025; 99285

== ENCOUNTER → 2018-06-19 | Outpatient (CLI) | payer MEDICARE ==
[2018-06-19 14:23] LABS: Blood Urea Nitrogen 8 mg/dL (7-17)
--- NOTE | 2018-06-19 15:56 | CT ---
EXAMINATION TYPE: CT abdomen pelvis w con DATE OF EXAM: 06/19/2018 COMPARISON: 05/17/2018 HISTORY: Lower abdominal pain. CT DLP: 1522 mGycm CONTRAST: CT scan of the abdomen and pelvis is performed with Oral Contrast and with IV Contrast, patient injec kyrie with 100ml mL of Isovue M300. FINDINGS: LUNG BASES-: No visible nodule. No infiltrate. LIVER/GB: No calcified gallstones. No space occupying hepatic lesion. Biliary tree is of normal ca liber. PANCREAS: No inflammation. No distinct mass. SPLEEN: No splenic enlargement. No lesion seen. ADRENALS: No nodule. No thickening. KIDNEYS/BLADDER: No hydronephrosis. No nephrolithiasis. No distinct renal mass. Urinary bladder g rossly unremarkable. BOWEL: Nonvisualization of the appendix. There is wall thickening sigmoid colon without inflammatory change. This could reflect a focal colitis. Neoplasm is not excluded. There appear to be postsurgical changes in this region as well. Consider direct visualization. GENITAL ORGANS: No gross abnormality. LYMPH NODES: No greater than 1cm abdominal or pelvic lymph nodes are appreciated. AORTA: No significant abnormality. OSSEOUS STRUCTURES: No significant abnormality is seen. OTHER: No significant additional abnormality is seen. IMPRESSION: 1. There is wall thickening sigmoid colon without inflammatory change. This could reflect a focal col itis. Neoplasm is not excluded.
== END ==
LOC: RADCTMAIN 13:41
PROVIDERS: ATTEND Surgery Plastic and Reconstructive Surgery
DX: K92.89 Other specified diseases of the digestive system (principal)
CPT/HCPCS: 82565; 84520; 74177; 36415; Q9967

== ENCOUNTER → 2018-10-08 | Outpatient (CLI) | payer MEDICARE ==
--- NOTE | 2018-10-08 12:16 | FL ---
EXAMINATION TYPE: FL UGI air w small bowel DATE OF EXAM: 10/08/2018 COMPARISON: CT 06/19/2018 HISTORY: Intussusception, abdomen pain TECHNIQUE: A double contrast UGI study is performed with small bowel follow through. 28 images, 3 mi nutes 22 seconds fluoroscopy time FINDINGS: [employer] image of the abdomen shows no gross abnormality. There is a levoscoliosis with degen erative disc change. The esophagus shows normal motility and emptying into the stomach. No evidence of hiatal hernia or s tricture noted. The stomach shows normal distensibility, peristalsis, and mucosal folds. No evidence of any mass or ulcer disease. No significant esophageal reflux was seen during real time performance of this study. The duodenal bulb and sweep are unremarkable. The small bowel study shows transit to the colon approximately 60 minutes. There is normal mucosal f old pattern throughout the small bowel. There is no evidence of any stricture or filling defect note d. The terminal ileum is unremarkable. IMPRESSION: Normal upper GI study and small bowel follow through.
== END ==
LOC: RADFLMAIN 08:01
PROVIDERS: ATTEND Surgery Plastic and Reconstructive Surgery
DX: K56.1 Intussusception (principal); Z88.1 Allergy status to other antibiotic agents; Z88.5 Allergy status to narcotic agent; Z88.6 Allergy status to analgesic agent; Z88.8 Allergy status to other drugs, medicaments and biological substances
CPT/HCPCS: 74249

== ENCOUNTER → 2018-12-17 | Outpatient (CLI) | payer MEDICARE ==
--- NOTE | 2018-12-17 14:05 | MR ---
EXAMINATION TYPE: MR brain wo con DATE OF EXAM: 12/17/2018 COMPARISON: NONE HISTORY: Worsened abnormal, expressive aphasia, and CVA per prescription. TECHNIQUE: Multiplanar, multisequence imaging of the brain and brainstem is performed without IV cont rast. FINDINGS: Diffusion weighted images demonstrate no evidence of a recent infarct or other diffusion abnormality. There is no worrisome extra-axial fluid collection. Mild ventricular and sulcal prominence is present . There are scattered foci of T2 hyperintensity seen throughout the white matter bilaterally. Approxi mately 20-30 scattered lesions are seen. For reference 6 mm posterior left frontal lesion at level of cui radiata axial image 18. For reference 7 mm right parietal occipital periventricular lesions s harry image. Midline structures demonstrate normal morphology. The craniocervical junction appears within normal limits. Normal vascular flow voids are present. A dominant left vertebral artery incidentally noted. The visualized sinuses are clear and the globes are intact. IMPRESSION: Mild diffuse cerebral atrophy and moderate chronic small vessel ischemic changes.
== END | disposition home or self-care (01) ==
LOC: RADMRIMAIN 12:37
PROVIDERS: ATTEND Psychiatry & Neurology Neurology
DX: G31.89 Other specified degenerative diseases of nervous system (principal); I67.82 Cerebral ischemia; I69.320 Aphasia following cerebral infarction
CPT/HCPCS: 70551

== ENCOUNTER 2019-08-02 13:32 | Emergency (ER) | payer MEDICARE ==
--- NOTE | 2019-08-02 14:21 | ED ---
General Adult HPI <Oumar Ballesteros Tomy - Last Filed: 08/02/19 21:34> - General Source: family Mode of arrival: ambulatory Limitations: no limitations <Richard Mc Willian - Last Filed: 08/05/19 19:55> - General Chief complaint: Psychiatric Symptoms Stated complaint: Mental Health Time Seen by Provider: 08/02/19 14:04 - History of Present Illness Initial comments: Dictation was produced using [employer] dictation software. please excuse any grammatical, word or spelling errors. Chief Complaint: 74-year-old female presents with auditory hallucinations. History of Present Illness: Patient is a 74-year-old female she has past medical history of psychiatric disease since with auditory hallucinations. Vital by . He reports that patient has been having auditory hallucinations over the last several days. Patient has been hearing voices telling her to cut him with a parous scissors. Patient has been evaluated by neurology. Patient was admitted to inpatient psychiatry recently where she was admitted to psych for 12 days. She had a teleconference with psychiatrist at the clinic and psychiatrist told them that they had no idea what was going on. They talked to neurology who instructed them to come to the emergency department. Patient is a poor historian at this time. The ROS documented in this emergency department record has been reviewed and confirmed by me. Those systems with pertinent positive or negative responses have been documented in the HPI. All other systems are other negative and/or noncontributory. PHYSICAL EXAM: General Impression: Alert and oriented x3, not in acute distress HEENT: Normocephalic atraumatic, extra-ocular movements intact, pupils equal and reactive to light bilaterally, mucous membranes moist. Cardiovascular: Heart regular rate and rhythm, S1&S2 audible, no murmurs, rubs or gallops Chest: Lungs clear to auscultation bilaterally, no rhonchi, no wheeze, no rales Abdomen: Bowel sounds present, abdomen soft, non-tender, non-distended, no organomegaly Musculoskeletal: Pulses present and equal in all extremities, no peripheral edema Motor: no focal deficits noted Neurological: CN II-XII grossly intact, no focal motor or sensory deficits noted Skin: Intact with no visualized rashes Psych: Rambling speech ED course: 74-year-old female presents with psychotic symptoms. Vital signs upon arrival are within except limits. Patient overtly psychotic at this time. She is pleasant however needs a lot of redirecting. EKG interpretation: Ventricular rate 74, normal sinus rhythm, AL interval 166, QS 84, QTC 395. No AL prolongation, no QTC prolongation, no ST or T-wave changes noted. Overall, this EKG is unremarkable (Richard Mc) - Related Data Home Medications Medication Instructions Recorded Confirmed Acetaminophen [Tylenol Arthritis] 650 mg PO BID PRN 09/05/17 08/02/19 Metoprolol Tartrate [Lopressor] 50 mg PO BID 09/05/17 08/02/19 Spironolactone [Aldactone] 25 mg PO DAILY 05/18/18 08/02/19 Dicyclomine [Bentyl] 10 mg PO BID-W/MEALS 08/02/19 08/02/19 Docusate [Colace] 100 mg PO DAILY PRN 08/02/19 08/02/19 Ginkgo Biloba Kimberly Extract [Ginkgo 60 mg PO DAILY 08/02/19 08/02/19 Biloba] OXcarbazepine [Trileptal] 300 mg PO BID 08/02/19 08/02/19 Omeprazole 20 mg PO DAILY 08/02/19 08/02/19 lamoTRIgine [LaMICtal] 150 mg PO BID 08/02/19 08/02/19 risperiDONE [RisperDAL] 2 mg PO BID 08/02/19 08/02/19 Allergies Allergy/AdvReac Type Severity Reaction Status Date / Time levofloxacin [From Levaquin] Allergy Rash/Hives Verified 08/02/19 19:19 metronidazole [From Flagyl] Allergy Rash/Hives Verified 08/02/19 19:19 aspirin AdvReac Abdominal Verified 08/02/19 19:19 Pain neomycin AdvReac Vomiting Verified 08/02/19 19:19 propoxyphene AdvReac Nausea & Verified 08/02/19 19:19 [From Darvocet-N] Vomiting sulfamethoxazole AdvReac DIZZY Verified 08/02/19 19:19 [From Bactrim] tramadol AdvReac DIZZY Verified 08/02/19 19:19 trimethoprim [From Bactrim] AdvReac DIZZY Verified 08/02/19 19:19 Review of Systems ROS Other: All systems not noted in ROS Statement are negative. <Oumar Ballesteros - Last Filed: 08/02/19 21:34> ROS Other: All systems not noted in ROS Statement are negative. <Richard Mc - Last Filed: 08/05/19 19:55> ROS Statement: Those systems with pertinent positive or pertinent negative responses have been documented in the HPI. Past Medical History Past Medical History: GERD/Reflux, Hearing Disorder / Deafness, Hyperlipidemia, Hypertension, Osteoarthritis (OA) Additional Past Medical History / Comment(s): diveticulosis, trigeminal nerve pain, leakage of urine, [place] History of Any Multi-Drug Resistant Organisms: None Reported Past Surgical History: Breast Surgery, Section, Heart Catheterization Additional Past Surgical History / Comment(s): SILVIA CATARACTS REMOVED, CYST REMOVED FROM RT BREAST, FATTY MASS REMOVED FROM RECTUM, colonoscopy, EGD, Past Anesthesia/Blood Transfusion Reactions: No Reported Reaction Past Psychological History: No Psychological Hx Reported Smoking Status: Never smoker Past Alcohol Use History: None Reported Past Drug Use History: None Reported - Past Family History Father Family Medical History: Cancer Additional Family Medical History / Comment(s): COLON CANCER, LEUKEMIA <Richard Mc - Last Filed: 08/05/19 19:55> General Exam Limitations: no limitations <Richard Mc - Last Filed: 08/05/19 19:55> Course <Oumar Ballesteros - Last Filed: 08/02/19 21:34> Vital Signs 08/02/19 08/02/19 08/02/19 13:50 14:56 15:56 Temperature 97.4 F L Pulse Rate 66 68 Respiratory 18 20 20 Rate Blood Pressure 138/84 176/79 O2 Sat by Pulse 94 L 97 97 Oximetry 08/02/19 08/02/19 08/02/19 16:00 17:00 18:00 Temperature Pulse Rate Respiratory 20 20 20 Rate Blood Pressure O2 Sat by Pulse 97 97 97 Oximetry 08/02/19 08/03/19 08/03/19 19:00 06:00 10:54 Temperature 98.8 F Pulse Rate 88 98 Respiratory 20 18 18 Rate Blood Pressure 127/58 133/66 O2 Sat by Pulse 97 97 95 Oximetry 08/03/19 08/03/19 08/03/19 12:50 13:03 13:14 Temperature Pulse Rate 64 66 62 Respiratory 18 18 18 Rate Blood Pressure 84/55 99/48 104/49 O2 Sat by Pulse 98 97 98 Oximetry 08/03/19 13:28 Temperature Pulse Rate 62 Respiratory 18 Rate Blood Pressure 118/61 O2 Sat by Pulse 98 Oximetry - Reevaluation(s) Reevaluation #1: 08/02/19 21:34 patient was made medically clear and seen and evaluated in the ER by mental health (Oumar Ballesteros) Reevaluation #2: 08/02/19 21:34 patient wanted an patient's family wanted to take patient home patient deemed necessary for inpatient treatment (Oumar Ballesteros) Medical Decision Making - Lab Data Result diagrams: 08/02/19 14:37 08/02/19 14:37 <Oumar Ballesteros - Last Filed: 08/02/19 21:34> - Lab Data Result diagrams: 08/02/19 14:37 08/02/19 14:37 <Richard Mc - Last Filed: 08/05/19 19:55> - Medical Decision Making 74 female here for evaluation will be admitted for inpatient psychiatric treat ment and evaluation (Oumar Ballesteros) - Lab Data Lab Results 08/02/19 08/02/19 08/02/19 Range/Units 14:37 14:37 16:05 WBC 6.2 (3.8-10.6) k/uL RBC 3.93 (3.80-5.40) m/uL Hgb 13.0 (11.4-16.0) gm/dL Hct 38.1 (34.0-46.0) % MCV 96.9 (80.0-100.0) fL MCH 33.0 (25.0-35.0) pg MCHC 34.1 (31.0-37.0) g/dL RDW 11.3 L (11.5-15.5) % Plt Count 299 (150-450) k/uL Neutrophils % 63 % Lymphocytes % 26 % Monocytes % 6 % Eosinophils % 1 % Basophils % 0 % Neutrophils # 3.9 (1.3-7.7) k/uL Lymphocytes # 1.6 (1.0-4.8) k/uL Monocytes # 0.4 (0-1.0) k/uL Eosinophils # 0.1 (0-0.7) k/uL Basophils # 0.0 (0-0.2) k/uL Sodium 134 L (137-145) mmol/L Potassium 4.3 (3.5-5.1) mmol/L Chloride 97 L (98-107) mmol/L Carbon Dioxide 31 H (22-30) mmol/L Anion Gap 6 mmol/L BUN 14 (7-17) mg/dL Creatinine 0.59 (0.52-1.04) mg/dL Est GFR (CKD-EPI)AfAm >90 (>60 ml/min/1.73 sqM) Est GFR (CKD-EPI)NonAf >90 (>60 ml/min/1.73 sqM) Glucose 101 H (74-99) mg/dL Calcium 10.2 (8.4-10.2) mg/dL Urine Color Light Yellow Urine Appearance Clear (Clear) Urine pH 7.0 (5.0-8.0) Ur Specific [place] 1.008 (1.001-1.035) Urine Protein Negative (Negative) Urine Glucose (UA) Negative (Negative) Urine Ketones Negative (Negative) Urine Blood Small H (Negative) Urine Nitrite Negative (Negative) Urine Bilirubin Negative (Negative) Urine Urobilinogen <2.0 (<2.0) mg/dL Ur Leukocyte Esterase Negative (Negative) Urine RBC 6 H (0-5) /hpf Ur Squamous Epith Cells <1 (0-4) /hpf Urine Mucus Rare H (None) /hpf Urine Opiates Screen (NotDetected) Ur Oxycodone Screen (NotDetected) Urine Methadone Screen (NotDetected) Ur Propoxyphene Screen (NotDetected) Ur Barbiturates Screen (NotDetected) U Tricyclic Antidepress (NotDetected) Ur Phencyclidine Scrn (NotDetected) Ur Amphetamines Screen (NotDetected) U Methamphetamines Scrn (NotDetected) U Benzodiazepines Scrn (NotDetected) Urine Cocaine Screen (NotDetected) U Marijuana (THC) Screen (NotDetected) Serum Alcohol <10 mg/dL 08/02/19 Range/Units 16:05 WBC (3.8-10.6) k/uL RBC (3.80-5.40) m/uL Hgb (11.4-16.0) gm/dL Hct (34.0-46.0) % MCV (80.0-100.0) fL MCH (25.0-35.0) pg MCHC (31.0-37.0) g/dL RDW (11.5-15.5) % Plt Count (150-450) k/uL Neutrophils % % Lymphocytes % % Monocytes % % Eosinophils % % Basophils % % Neutrophils # (1.3-7.7) k/uL Lymphocytes # (1.0-4.8) k/uL Monocytes # (0-1.0) k/uL Eosinophils # (0-0.7) k/uL Basophils # (0-0.2) k/uL Sodium (137-145) mmol/L Potassium (3.5-5.1) mmol/L Chloride (98-107) mmol/L Carbon Dioxide (22-30) mmol/L Anion Gap mmol/L BUN (7-17) mg/dL Creatinine (0.52-1.04) mg/dL Est GFR (CKD-EPI)AfAm (>60 ml/min/1.73 sqM) Est GFR (CKD-EPI)NonAf (>60 ml/min/1.73 sqM) Glucose (74-99) mg/dL Calcium (8.4-10.2) mg/dL Urine Color Urine Appearance (Clear) Urine pH (5.0-8.0) Ur Specific [place] (1.001-1.035) Urine Protein (Negative) Urine Glucose (UA) (Negative) Urine Ketones (Negative) Urine Blood (Negative) Urine Nitrite (Negative) Urine Bilirubin (Negative) Urine Urobilinogen (<2.0) mg/dL Ur Leukocyte Esterase (Negative) Urine RBC (0-5) /hpf Ur Squamous Epith Cells (0-4) /hpf Urine Mucus (None) /hpf Urine Opiates Screen Not Detected (NotDetected) Ur Oxycodone Screen Not Detected (NotDetected) Urine Methadone Screen Not Detected (NotDetected) Ur Propoxyphene Screen Not Detected (NotDetected) Ur Barbiturates Screen Not Detected (NotDetected) U Tricyclic Antidepress Not Detected (NotDetected) Ur Phencyclidine Scrn Not Detected (NotDetected) Ur Amphetamines Screen Not Detected (NotDetected) U Methamphetamines Scrn Not Detected (NotDetected) U Benzodiazepines Scrn Not Detected (NotDetected) Urine Cocaine Screen Not Detected (NotDetected) U Marijuana (THC) Screen Not Detected (NotDetected) Serum Alcohol mg/dL Disposition Is patient prescribed a controlled substance at d/c from ED?: No <Oumar Ballesteros B - Last Filed: 08/02/19 21:34> <Richard Mc D - Last Filed: 08/05/19 19:55> Clinical Impression: Acute psychosis, Hard of hearing, Psychosis Disposition: TRANSFER TO PSYCH HOSP/UNIT Condition: Fair Referrals: Thai Rowley MD [Primary Care Provider] - 1-2 days
[2019-08-02 15:00] LABS: Basophils % (A) 0 %; Eosinophils # (A) 0.1 k/uL (0-0.7); Eosinophils % (A) 1 %; HCT 38.1 % (34.0-46.0); Lymphocytes # (A) 1.6 k/uL (1.0-4.8); Lymphocytes % (A) 26 %; MCHC 34.1 g/dL (31.0-37.0); MCV 96.9 fL (80.0-100.0); Mean Platelet Volume 6.6; Monocytes # (A) 0.4 k/uL (0-1.0); Monocytes % (A) 6 %; Neutrophils # (A) 3.9 k/uL (1.3-7.7); Neutrophils % (A) 63 %; Platelet Count 299 k/uL (150-450); RBC 3.93 m/uL (3.80-5.40); RDW 11.3 % (11.5-15.5); WBC 6.2 k/uL (3.8-10.6)
[2019-08-02 15:16] LABS: African American GFR (CKD) >90 (>60 ml/min/1.73 sqM); Alcohol <10 mg/dL; Anion Gap 6 mmol/L; Blood Urea Nitrogen 14 mg/dL (7-17); Calcium 10.2 mg/dL (8.4-10.2); Carbon Dioxide 31 mmol/L (22-30); Chloride 97 mmol/L (98-107); Glucose 101 mg/dL (74-99); Non-African American GFR(CKD) >90 (>60 ml/min/1.73 sqM); Potassium 4.3 mmol/L (3.5-5.1); Sodium 134 mmol/L (137-145)
[2019-08-02 16:56] LABS: Appearance,Urine Clear (Clear); Bilirubin,Urine Negative (Negative); Blood,Urine Small (Negative); Color,Urine Light Yellow; Glucose,Urine (UA) Negative (Negative); Ketones,Urine Negative (Negative); Leukocyte Esterase,Urine Negative (Negative); Mucus,Urine Rare /hpf; Nitrite,Urine Negative (Negative); Protein,Urine Negative (Negative); RBC,Urine 6 /hpf (0-5); Specific Gravity,Urine 1.008 (1.001-1.035); Squamous Epithelial Cell,Urine <1 /hpf (0-4); Urobilinogen,Urine <2.0 mg/dL (<2.0)
[2019-08-02 17:10] LABS: Amphetamine Screen,Urine Not Detected (NotDetected); Barbiturate Screen,Urine Not Detected (NotDetected); Benzodiazepines Screen,Urine Not Detected (NotDetected); Cocaine Screen,Urine Not Detected (NotDetected); Methadone Screen, Urine Not Detected (NotDetected); Opiate Screen,Urine Not Detected (NotDetected); Oxycodone Screen, Urine Not Detected (NotDetected); Phencyclidine Screen,Urine Not Detected (NotDetected); Tricyclic Antidepressant,Urine Not Detected (NotDetected); Urn Cannabinoid Scrn Not Detected (NotDetected)
[2019-08-02] MEDS ORDERED: Acetaminophen-Codeine 300-30mg TAB PO STA (21:06)
[2019-08-02] MEDS: lamoTRIgine 100 MG TAB PO SCH (22:42)
[2019-08-02] MEDS: risperiDONE 2 MG TAB PO SCH (22:42)
[2019-08-02] MEDS: OXcarbazepine 300 MG TAB PO SCH (22:42)
[2019-08-03 06:05] VITALS: RESP 18
[2019-08-03] MEDS ORDERED: DICYCLOMINE 10 MG CAP PO SCH (07:30)
[2019-08-03] MEDS ORDERED: OXcarbazepine 150 MG TAB PO STA (10:50)
[2019-08-03] MEDS: METOPROLOL TARTRATE 50 MG TAB PO SCH ×2 (10:54→10:56)
[2019-08-03 10:55] VITALS: TEMP 98.8
[2019-08-03] MEDS: lamoTRIgine 100 MG TAB PO SCH (10:55)
[2019-08-03] MEDS: risperiDONE 2 MG TAB PO SCH (10:56)
[2019-08-03] MEDS: OXcarbazepine 300 MG TAB PO SCH (10:57)
[2019-08-03] MEDS ORDERED: SODIUM CHLORIDE 0.9% 500 ML 500 ML IV STA (12:51)
[2019-08-03 13:15] VITALS: PULSE 62
[2019-08-03 13:31] VITALS: BP 118/61
== END 2019-08-03 13:30 ==
LOC: EC 13:32
DX: F23 Brief psychotic disorder (principal); H91.90 Unspecified hearing loss, unspecified ear; K21.9 Gastro-esophageal reflux disease without esophagitis; E78.5 Hyperlipidemia, unspecified; I10 Essential (primary) hypertension; M19.90 Unspecified osteoarthritis, unspecified site; Z79.899 Other long term (current) drug therapy; Z88.1 Allergy status to other antibiotic agents; Z88.8 Allergy status to other drugs, medicaments and biological substances; Z88.6 Allergy status to analgesic agent; Z88.2 Allergy status to sulfonamides; Z88.5 Allergy status to narcotic agent; Z95.5 Presence of coronary angioplasty implant and graft
CPT/HCPCS: 36415; 93005; 80048; 85025; 81001; 80306; 99285; G0480; 80320